=== PATIENT | female | born 2000 | race Caucasian/White ===

== ENCOUNTER 2020-03-21 07:10 | Emergency (ER) | payer OTHER, SELFPAY ==
[2020-03-21 07:43] VITALS: BP 97/45; PULSE 61; RESP 18; TEMP 37.1; O2SAT 99; BMI 27.4
--- NOTE | 2020-03-21 08:06 | XR_ITS ---
EXAMINATION: XR SACRUM AND COCCYX CLINICAL INFORMATION: Status post fall COMPARISON: None TECHNIQUE: 2 views of the sacrum and 2 views of the coccyx were obtained. FINDINGS: There are no fractures. No bone, joint or soft tissue abnormality is demonstrated. XR/XR sacrum coccyx min 2V IMPRESSION: Unremarkable sacrum exam
--- NOTE | 2020-03-21 08:10 | ED_ITS ---
HPI - Back Pain/Injury General Chief Complaint: Back Pain/Injury Stated Complaint: multiple complaints Time Seen by Provider: 03/21/20 08:01 Source: patient Mode of arrival: ambulatory Limitations: no limitations History of Present Illness HPI Narrative: 20 y/o female presenting with tailbone pain after she slipped on ice while getting out her car 2 days ago. She states her foot flipped on ice when she was stepping out and she fell hard onto the lower side of her car and then the cement. She was able to get up and sustained no other injuries. She has been sore since, worse when sitting. She denies numbness, tingling, LE weakness, incontinence. She also reports foul smelling bruner vaginal discharge for the last few days. She is sexually active with a new partner. She does not know if he has any sexually transmitted infections. She denies abdominal pain, vaginal pain or bleeding. Denies chance of . MD elicited complaint: back pain, back injury and fall Pertinent past history: recent trauma Onset (ago): day(s) (2) Timing: constant Severity: moderate Similar Symptoms Previously: No Quality: sharp and aching Location: lumbar spine (lower lumbar and coccyx ) Radiation: none Exacerbating factors: movement and sitting upright Relieving factors: immobilization Context: fall Associated symptoms: denies other symptoms Treatments prior to arrival: cold therapy Work related injury: No Related Data Previous Rx's Medication Instructions Recorded ibuprofen 600 mg PO Q8H PRN #15 tab 03/21/20 lidocaine [Lidoderm] 1 patch TOPICAL DAILY #15 ea 03/21/20 Allergies Allergy/AdvReac Type Severity Reaction Status Date / Time No Known Allergies Allergy Unverified 03/21/20 08:06 Review of Systems Review of Systems: Constitutional: No Fever, N+Chills Cardiovascular: No Chest Pain, No SOB Respiratory: No Cough, No Sputum Gastrointestinal: No Nausea, No Vomiting, No Diarrhea, No abdominal Pain Genitourinary: No Dysuria, No Urinary Frequency, No Hematuria, +vaginal discharge Musculoskeletal: + joint pain, + Myalgias Skin: No Skin Lesions, No rash Neuro: No Weakness, No Numbnes PMFSH Past Medical History Attestation statement: The following information was validated with the patient. Medical History Asthma Social History Social History Advance Directives: No Advance Directives Information Provided: No Physical Exam Vital Signs: Vital Signs: Last Vital Signs Temp 98.8 F 03/21/20 07:43 Pulse 61 03/21/20 07:43 Resp 18 03/21/20 07:43 BP 97/45 L 03/21/20 07:43 Pulse Ox 99 03/21/20 07:43 Body Mass Index 27.4 Appearance: Alert. Oriented X3. No acute distress. HEENT: normal inspection Respiratory: No respiratory distress. Abd: soft, non-tender. normal BX x4 Skin: Skin warm and dry. Normal skin color. Normal skin turgor. No rashes. Back: coccyx tenderness, no soft tissue tenderness of buttocks or sacral area. No deformity or crepitus palpable. No ecchymosis Pelvic: normal external genitalia, moderate amount of white vaginal discharge, normal appearing cervix Extremities: atraumatic, no LE edema Neuro: Oriented X 3. Non-focal Course Course Course Narrative: 20 y/o female presenting with coccyx pain s/p fall and vaginal discharge. XR shows no acute fracture or abnormality of sacrum/coccyx. Pelvic exam with moderate white discharge - swabbed for BV, CT/NG, Trich. UA negative. Will empirically treat for CT/NG, patient agreeable. She was counseled. Stable for d/c. MDM - Back Pain/Injury Lab Data Labs: Lab Results 03/21/20 Range/Units 08:45 Urine Color YELLOW Urine Appearance CLEAR Urine pH 6.0 (5.0-8.0) Ur Specific [place] 1.025 (1.005-1.025) Urine Protein NEG (NEG-TRACE) MG/DL Urine Glucose (UA) NEG (NEG) MG/DL Urine Ketones NEG (NEG) MG/DL Urine Blood NEG (NEG) Urine Nitrite NEG (NEG) Ur Leukocyte Esterase NEG (NEG) Critical Care Time Critical Care Time Critical Care Time: No Discharge Plan Discharge Clinical Impression: Cervicitis Coccyx contusion Qualifiers: Encounter type: initial encounter Qualified Code(s): S30.0XXA - Contusion of lower back and pelvis, initial encounter Patient Disposition: Home, Self-Care Instructions: Cervicitis (ED), Coccyx Injury (ED) Additional Instructions: Your x-ray today was normal. Your urine test did not show any evidence of urinary tract infection. You were tested for and treated for possible Gonorrhea and Chylamadia. If these come back positive we will call you and let you know. Do not have any sexual contact until your symptoms completely resolve. Follow up with your [facility] doctor. Take the prescribed medications as needed for low back pain. If any of your symptoms worsen, or if you develop new concerning symptoms seek medical attention or come back to the ER for further evaluation. Prescriptions: New lidocaine [Lidoderm] 5 % adhesive patch,medicated 1 patch topical DAILY Qty: 15 RF: 0 ibuprofen 600 mg tablet 600 mg PO Q8H PRN (Reason: pain) Qty: 15 RF: 0
[2020-03-21 09:02] LABS: Glucose Urine UA NEG (NEG); Leukocyte Esterase Urine NEG (NEG); Nitrite Urine NEG (NEG); Specific Gravity - Urine 1.025 (1.005-1.025); Urine Blood NEG (NEG); Urine Ketones NEG (NEG); Urine Protein NEG (NEG-TRACE)
[2020-03-21 09:07] LABS: Appearance Urine CLEAR; Color Urine YELLOW
[2020-03-21 09:09] LABS: UPreg QC Valid YES; Urine Pregnancy NEGATIVE (NEGATIVE)
[2020-03-21] MEDS: Azithromycin 500 MG TABLET 1000 MG PO (09:31)
[2020-03-21] MEDS: cefTRIAXone sodium 500 MG, Lidocaine HCl 1 % MPF 1 ML IM (09:32)
[2020-03-21 13:16] LABS: BV Int Neg Control Negative (Negative)
[2020-03-21 13:17] LABS: BV Int Pos Control Positive (Positive)
[2020-03-28 10:45] LABS: CT PCR NOT DETECTED (Not Detect.); NG PCR NOT DETECTED (Not Detect.)
== END 2020-03-21 09:39 | disposition home or self-care (01) ==
PROVIDERS: Physician Assistant; Emergency Provider Emergency Medicine; PCP Internal Medicine
DX: S30.0XXA Contusion of lower back and pelvis, initial encounter (principal); N72 Inflammatory disease of cervix uteri; W00.0XXA Fall on same level due to ice and snow, initial encounter; Y93.9 Activity, unspecified; Y92.9 Unspecified place or not applicable; Y99.9 Unspecified external cause status; Z20.2 Contact with and (suspected) exposure to infections with a predominantly sexual mode of transmission
CPT/HCPCS: 72220; 81003; 81025; 87480; 87491; 87510; 87591; 87660; 96372; 99283; 99284; J0696

== ENCOUNTER 2020-07-24 16:31 | Emergency (ER) | payer OTHER, SELFPAY ==
[2020-07-24 16:32] VITALS: RESP 18; BMI 18.3
--- NOTE | 2020-07-24 16:54 | ED_ITS ---
HPI - URI/Sore Throat General Chief Complaint: Upper Respiratory Symptoms Stated Complaint: covid symptoms Time Seen by Provider: 07/24/20 16:31 Source: patient Mode of arrival: ambulatory Limitations: no limitations History of Present Illness HPI Narrative: 20-year-old female here with cough and sore throat. Here with 3 children who have all the same symptoms. Related Data Previous Rx's Medication Instructions Recorded ibuprofen 600 mg PO Q8H PRN #15 tab 03/21/20 lidocaine [Lidoderm] 1 patch TOPICAL DAILY #15 ea 03/21/20 metronidazole [Flagyl] 500 mg PO Q12H #14 tab 03/21/20 Allergies Allergy/AdvReac Type Severity Reaction Status Date / Time No Known Allergies Allergy Unverified 03/21/20 08:06 Review of Systems Review of Systems: Yes all other systems are reviewed and are negative Constitutional: Constitutional: Reports no additional constitutional complaints, Denies body ache(s), Denies chills, Denies fever(s), Denies headache(s) and Denies weakness Eyes: Eyes: Reports no additional eye complaints and Denies change in vision ENT: Reports system reviewed and no additional complaints, except as documented, Denies dizziness, Denies headache(s), Denies nasal congestion, Denies nasal discharge, Denies neck pain and Reports sore throat Cardiovascular: Cardiovascular: Reports no additional cardiovascular complaints, Denies chest pain, Denies leg edema and Denies dyspnea Respiratory: Respiratory: Reports no additional respiratory complaints, Reports cough and Denies dyspnea Gastrointestinal: Gastrointestinal: Reports no additional gastrointestinal complaints, Denies abdominal pain, Denies diarrhea, Denies nausea and Denies vomiting Genitourinary: Genitourinary: Reports no additional female genitourinary complaints and Denies urinary incontinence Musculoskeletal: Musculoskeletal: Reports no additional musculoskeletal complaints, Denies back pain, Denies arthralgias, Denies joint swelling, Denies neck pain, Denies numbness and Denies tingling Integumentary/Breasts: Skin/Breast: Reports system reviewed and no additional complaints, except as docu and Denies rash Neurologic: Denies Abnormal speech present, Denies dizziness, Denies headache(s), Denies numbness, Denies tingling and Denies weakness [facility] Past Medical History Attestation statement: The following information was validated with the patient. Source: old records reviewed and nursing notes reviewed Medical History Asthma Social History Social History Advance Directives: No Advance Directives Information Provided: Yes Patient : No Physical Exam Vital Signs: Vital Signs: Last Vital Signs Resp 18 07/24/20 16:32 Body Mass Index 18.3 Const: General: cooperative, healthy appearing, comfortable and no acute distress Orientation/consciousness: patient oriented x3 Limitations: no limitations HENMT: Head: Yes normal to inspection Ears: hearing grossly normal bilaterally General nose exam: Normal external nose present Face and sinus: Yes normal facial exam Mouth: Normal oral and palatal mucosa present Throat: Yes posterior oropharynx normal Eyes: General: appearance normal, both eyes and all related structures Pupils: Equal, round and reactive pupils present Neck: Neck: Yes normal visual inspection Chest: Chest palpation & inspection: normal inspection of the chest Resp: Effort & Inspection: normal respiratory effort Auscultation: clear to auscultation bilaterally Cardio: Rate: regular rate Rhythm: regular rhythm Peripheral pulses: Peripheral pulses 2+ throughout GI: Inspection: Yes normal to inspection Palpation (GI): Soft to palpation and nontender Auscultation: normal bowel sounds Back/Spine/Pelvis: Thoracic/Lumbar Spine: thoracic and lumbar spine normal to inspection Skin: General skin exam: no rashes or lesions noted Neuro: General: patient oriented x3, no focal motor deficits and normal sensation to monofilament Cranial nerves: Yes Equal, round and reactive pupils present Cognition (Neuro): normal cognition Speech: No Abnormal speech present Gait exam (Neuro): Normal gait present Motor exam (neuro): 5/5 motor strength present throughout Extrem: General: Yes normal to inspection Course Course Course Narrative: URI symptoms with sick contact at home. Requesting COVID screen. This was sent and it was negative. Patient is hemodynamically stable. Well appearing. Likely viral. Reviewed worrisome signs and symptoms of when to return to the emergency department. Comfortable discharge home. MDM - URI/Sore Throat Medical Records Attestation: I reviewed the patient's medical records. Lab Data Attestation: I reviewed the patient's lab results. Labs: Lab Results 07/24/20 Range/Units 16:44 COVID-19 (ALE) Negative (Negative) COVID-19 Clin Com See Note Discharge Plan Discharge Clinical Impression: Viral infection Patient Disposition: Home, Self-Care Instructions: Viral Syndrome (ED) Additional Instructions: Increase fluids, rest Motrin or Tylenol for pain or fever Prescriptions: No Action lidocaine [Lidoderm] 5 % adhesive patch,medicated 1 patch topical DAILY Qty: 15 RF: 0 ibuprofen 600 mg tablet 600 mg PO Q8H PRN (Reason: pain) Qty: 15 RF: 0 metronidazole [Flagyl] 500 mg tablet 500 mg PO Q12H Qty: 14 RF: 0 Referrals: Physician,Unknown [Primary Care Provider] - 2 days Interventions: ED Discharge Assessment Last Done: 07/24/20 17:24 Discharge Date/Time: 07/24/20 17:25
[2020-07-24 17:09] LABS: COVID-19 Test Negative (Negative); IDNOW Serial# 9DD0AD1C
== END 2020-07-24 17:25 | disposition home or self-care (01) ==
PROVIDERS: Nurse Practitioner Family; Emergency Provider Emergency Medicine
DX: B34.9 Viral infection, unspecified (principal); Z20.822 Contact with and (suspected) exposure to COVID-19; J02.9 Acute pharyngitis, unspecified; J45.909 Unspecified asthma, uncomplicated
CPT/HCPCS: 36415; 87635; 99282; 99283

== ENCOUNTER 2021-03-23 00:49 | Emergency (ER) | payer OTHER, SELFPAY ==
[2021-03-23 00:57] VITALS: BP 119/48; PULSE 104; RESP 24; TEMP 37.1; O2SAT 100; BMI 27.4
[2021-03-23 01:30] LABS: COVID-19 Test Positive (Negative); IDNOW Serial# 9DD0AD1C
== END 2021-03-23 05:21 | disposition left against medical advice (07) ==
PROVIDERS: Emergency Provider Emergency Medicine
DX: J02.9 Acute pharyngitis, unspecified (principal); R51.9 Headache, unspecified; Z20.822 Contact with and (suspected) exposure to COVID-19
CPT/HCPCS: 87635; 99281; 99283

== ENCOUNTER 2021-07-09 07:13 | Inpatient (IN) | payer OTHER, SELFPAY ==
--- NOTE | ~2021-07-09 | XR_ITS ---
EXAMINATION: XR CHEST CLINICAL INFORMATION: Chest pain COMPARISON: None TECHNIQUE: Frontal view of the chest was obtained. FINDINGS: No significant abnormality is noted involving the heart, lungs, mediastinum, bony thorax or soft tissues. XR/XR chest 1V IMPRESSION: Unremarkable examination.
--- NOTE | ~2021-07-09 | FL_ITS ---
PROCEDURE: Lumbar puncture Referring provider: Teddy Roblero Procedural Personnel Attending physician(s): Silvio Crews MD Resident physician(s): None Advanced practice provider(s): None Pre-procedure diagnosis: Weakness, areflexia, influenza, Guillain [place] syndrome Post-procedure diagnosis: Same Indication: Fluid analysis Additional clinical history: None Complications: No immediate complications. FL/FL guided lumbar puncture LP IMPRESSION: Image guided lumbar puncture at L3-L4. 12 ml clear CSF was collected. Opening pressure was 12 cmH20, Plan: Patient to remain supine for one hour following the procedure. Patient will be transferred to the floor. PROCEDURE SUMMARY: - Image guided lumbar puncture with pressure measurements - Additional procedure(s): None PROCEDURE DETAILS: Pre-procedure Consent: Informed consent for the procedure including risks, benefits and alternatives was obtained and time-out was performed prior to the procedure. Preparation: The site was prepared and draped using maximal sterile barrier technique including cutaneous antisepsis. Anesthesia/sedation Level of anesthesia/sedation: None Anesthesia/sedation administered by: Not applicable Total intra-service sedation time (minutes): 0 Intervention Initial imaging was performed to select an appropriate access level. Patient was placed prone. Local anesthesia was administered. Using a sublaminar approach a 20-gauge spinal needle was advanced into the thecal space under intermittent fluoroscopic guidance. Fluid return confirmed position. Opening pressure was obtained. CSF was then collected in four vials for requested laboratory studies. Closing pressure was then obtained. The needle was removed and a sterile dressing applied. Opening pressure (cmH20): 12 Volume CSF removed (ml): 12 Contrast Contrast agent: None Contrast volume (mL): 0 Radiation Dose Fluoroscopy time (minutes): 0.2 Reference air kerma (mGy): 3.14 Kerma area product (Gy-cm2): 0.107 Additional Details Additional description of procedure: None Equipment details: None Specimens removed: Cerebrospinal fluid Estimated blood loss (mL): Less than 10 Attestation Signer name: Silvio Crews I attest that I was present for the entire procedure. I reviewed the stored images and agree with the report as written.
--- NOTE | ~2021-07-09 | MR_ITS ---
EXAMINATION: MR BRAIN WITHOUT AND WITH CONTRAST CLINICAL INFORMATION: Weakness. Areflexia. History of influenza. Guillain-[place] syndrome. COMPARISON: None available. TECHNIQUE: MRI of the brain was obtained using routine sequences without and following the administration of 5 mL of Gadavist intravenous contrast. FINDINGS: No focal restricted diffusion is demonstrated to suggest acute or subacute cerebral ischemia. No evidence of acute or chronic hemorrhagic products on heme-sensitive imaging. Minimal nonspecific scattered periventricular and deep white matter T2 FLAIR hyperintensities consistent. The ventricles are normal in morphology and size. No abnormal mass effect. No midline shift. Normal appearance of the pituitary gland. The cerebellar tonsils are positioned at the level the foramen magnum. Normal arterial and venous vascular flow voids are present. No abnormal contrast enhancement. Normal, homogeneous marrow signal. Mild mucosal thickening of the paranasal sinuses. No signal abnormalities within the mastoids. MR/MR head/brain wo/w con IMPRESSION: 1. No acute intracranial abnormalities. No abnormal intracranial enhancement. 2. Minimal nonspecific white matter changes.
--- NOTE | ~2021-07-09 | MR_ITS ---
EXAMINATION: MR LUMBAR SPINE WITHOUT AND WITH CONTRAST CLINICAL INFORMATION: Myelopathy. COMPARISON: None available. TECHNIQUE: MRI of the lumbar spine was obtained using routine sequences without and following the administration of 5.5 mL of Gadavist intravenous contrast. FINDINGS: Normal anatomic alignment. Normal, homogeneous marrow signal throughout. The vertebral body heights are maintained. The intervertebral discs are of normal height and signal. The conus medullaris terminates at the level of L1-L2. The distal spinal cord is normal in appearance. No abnormal contrast enhancement. No significant abnormalities of the paraspinal musculature. Limited evaluation of the intra-abdominal structures without significant abnormalities. The abdominal aorta is of normal contour and caliber. AXIAL SPINAL LEVELS: Normal annular contours. There is no facet joint arthropathy. There is no neural foraminal or spinal canal stenosis. MR/MR lumbar spine wo/w con IMPRESSION: Normal MRI of the lumbar spine. No abnormal enhancement. No evidence of spinal canal stenosis or nerve root compression.
--- NOTE | ~2021-07-09 | US_ITS ---
EXAMINATION: US VENOUS ULTRASOUND WITH DOPPLER LOWER EXTREMITY, RIGHT CLINICAL INFORMATION: Right leg pain COMPARISON: None TECHNIQUE: Ultrasound of the deep veins is performed from the hip to the calf with compression sonography and color and pulse Doppler assessment. Spectral analysis with color-flow imaging is performed. FINDINGS: There is normal venous compression and respiratory variation and augmented flow. The visualized common femoral vein, superficial femoral vein, profunda femoral vein, popliteal vein, and the trifurcation region shows no evidence of deep venous thrombosis. There is no significant popliteal fossa cyst. If the patient's symptoms persist, followup ultrasound in 5 days 7 days might be of value to exclude proximal propagation from a non-visualized calf vein. US/US venous duplex LE RT IMPRESSION: No DVT demonstrated in the right lower extremity.
[2021-07-09 07:18] VITALS: BP 148/81; PULSE 100; RESP 20; TEMP 37.5; O2SAT 100; BMI 22.6
--- NOTE | 2021-07-09 07:37 | ECG_ITS ---
Test Reason : CP Blood Pressure : / mmHG Vent. Rate : 091 BPM Atrial Rate : 091 BPM P-R Int : 188 ms QRS Dur : 072 ms QT Int : 360 ms P-R-T Axes : 072 039 035 degrees QTc Int : 442 ms Normal sinus rhythm with sinus arrhythmia Normal ECG No previous ECGs available Referred By: Ghanshyam Perez Electronically Signed By:GIAN BARRIOS MD
--- NOTE | 2021-07-09 07:37 | ED_ITS ---
HPI - General Adult General Chief complaint: Back Pain/Injury Stated complaint: BODYACHES,NAUSEA,FEVER SINCE T-1 Time Seen by Provider: 07/09/21 07:18 Source: patient and EMS Mode of arrival: EMS History of Present Illness HPI narrative: this is a 21 years old the female presented with multiple somatic complain she states she states that she has right leg pain localized in the right thigh, intermittent upper abdominal pain, intermittent chest pain since last night. He denies any medical problems. She denies any vomiting diarrhea. The right leg pain again is localized in the right inner thigh she does not report any injury Onset (ago): day(s) (1) Location: chest, abdomen and lower extremity (rt) Radiation: extremity and abdomen Severity: moderate Quality: burning Pain Consistency: intermittent Relieving factors: none Exacerbating factors: none Associated symptoms: denies other symptoms Treatments prior to arrival: none Related Data Home Medications Medication Instructions Recorded Confirmed albuterol sulfate 90 mcg/actuation 2 inh INHALATION Q4-6H PRN 07/09/21 07/09/21 breath activated powder inhaler Allergies Allergy/AdvReac Type Severity Reaction Status Date / Time No Known Allergies Allergy Unverified 03/21/20 08:06 Review of Systems Constitutional: Constitutional: Reports no additional constitutional complaints Cardiovascular: Cardiovascular: Denies dyspnea and Denies dyspnea on exertion Respiratory: Respiratory: Denies cough, Denies dyspnea, Denies dyspnea on exertion and Denies wheezing Gastrointestinal: Gastrointestinal: Denies diarrhea, Denies loose stools and Denies vomiting Genitourinary: Genitourinary: Denies abnormal vaginal bleeding Allergic/Immunologic: Allergic/Immunologic: Denies wheezing PMFSH Past Medical History PMFSH Narrative: denies any past medical history. She states that she only had bacterial vaginosis in the past Medical History Asthma Family History Family History Father Diabetes Social History Social History (Updated 07/09/21 @ 12:38 by SWEETIE Darden) Alcohol intake: current Alcohol intake frequency: a few times a week Patient Tobacco Use Status: Never used Tobacco Use of substances other than those prescribed or required for medical reasons: Yes Substance Use Type: Marijuana Advance Directives: No Advance Directives Information Provided: No Physical Exam ED Vital Signs: Vital Signs - 24 hr 07/09/21 07:18 07/09/21 08:00 Temperature 99.5 F Pulse Rate 100 92 Respiratory Rate 20 Blood Pressure 148/81 H 126/67 Pulse Oximetry 100 100 BMI result Body Mass Index 22.6 Const General: cooperative, alert and anxious Nutritional Appearance: average body habitus Orientation/consciousness: patient oriented x3 Limitations: no limitations HENMT Head: Yes normal to inspection Ears: hearing grossly normal bilaterally General nose exam: Normal external nose present Face and sinus: Yes normal facial exam Mouth: Normal oral and palatal mucosa present Throat: Yes posterior oropharynx normal Neck Neck: Yes normal visual inspection, Yes full ROM and Yes no lymphadenopathy Chest Chest palpation & inspection: normal inspection of the chest Resp Effort & Inspection: normal respiratory effort Auscultation: clear to auscultation bilaterally Cardio Jugular venous distension: no JVD Palpation: normal PMI Rate: regular rate Rhythm: regular rhythm GI Inspection: Yes normal to inspection Palpation (GI): Soft to palpation, not firm, nontender and no guarding Skin General skin exam: no rashes or lesions noted, elasticity normal and turgor normal Lesions: no lesions Rashes: no rashes Neuro General: patient oriented x3 Cranial nerves: Yes CN's II-XII intact bilaterally Cognition (Neuro): normal cognition Course Reevaluation(s) Reevaluation #1: feeling much better at thi time CPK noted will hydrate 2 Liter and recheck cpk trend Time: 08:57 Reevaluation #2: CPK repeated today he is more elevated at this point will admit the patient for observation for IV fluids and trending CPK I spoke with the case with the hospitalist Dr Gregorio who accept the pt Medical Decision Making MDM Narrative Medical decision making narrative: patient presenting multiple complaining chest pain abdominal pain right leg pain were going to get blood work I will ultrasound the right lower extremity as well administer analgesics and re-examin Lab Data Result diagrams: 07/09/21 07:56 07/09/21 07:56 Labs: Lab Results 07/09/21 07/09/21 07/09/21 Range/Units 07:56 07:56 07:56 WBC 5.3 (4.8-10.8) X10*3/uL RBC 4.82 (4.20-5.50) X10*6/uL Hgb 14.8 (12.0-16.0) g/dl Hct 44.0 (37.0-47.0) % MCV 91.3 (80.0-98.0) fL MCH 30.7 (27.0-33.0) pg MCHC 33.6 (31.0-35.0) g/dl RDW 12.8 (11.0-16.0) % Plt Count 264 (160-400) X10*3/uL MPV 9.0 L (9.4-12.3) fL Immature Gran % (Auto) 0.4 (0.0-0.4) % Neut % (Auto) 76.1 H (45-73) % Lymph % (Auto) 12.6 L (20-40) % Cass % (Auto) 7.7 (2-11) % Eos % (Auto) 2.8 (0-4) % Baso % (Auto) 0.4 (0-2) % Lymph # (Auto) 0.7 L (1.2-4.9) X10*3/uL Cass # (Auto) 0.4 (0.1-1.2) X10*3/uL Eos # (Auto) 0.2 (0.0-0.4) X10*3/uL Baso # (Auto) 0.0 (0.0-0.2) X10*3/uL Abs Immat Gran (auto) 0.02 (0.00-0.03) X10*3/uL Absolute Neuts (auto) 4.0 (2.0-8.3) x10*3/uL Absolute Nucleated RBC 0.000 (0.0-0.012) X10*3/uL Nucleated RBC % (auto) 0.0 (0.0-0.2) /100WBC Sodium 135 (135-145) mmol/L Potassium 4.6 (3.3-5.1) mmol/L Chloride 105 (96-108) mmol/L Carbon Dioxide 21 L (22-29) mmol/L Anion Gap 14 (12-20) BUN 11 (9-16) mg/dL Creatinine 0.91 (0.5-1.4) mg/dL Estim Creat Clear Calc 89.9 Estimated GFR > 60 Random Glucose 99 (60-115) mg/dL Calcium 10.0 (8.4-10.2) mg/dL Total Bilirubin 0.7 (0.0-1.0) mg/dL AST 55 H (5-31) U/L ALT 21 (0-31) U/L Alkaline Phosphatase 55 (39-117) U/L Total Creatine Kinase 3828 H (26-140) U/L Troponin I High Sens (<3.5-17.0) ng/L Total Protein 8.3 H (6.5-8.0) g/dL Albumin 4.5 (3.5-5.0) g/dL Lipase 7 L (8-78) U/L Beta HCG, Quant < 2 mIU/mL Urine Color Urine Appearance Urine pH (5.0-8.0) Ur Specific [place] (1.005-1.025) Urine Protein (NEG-TRACE) MG/DL Urine Glucose (UA) (NEG) MG/DL Urine Ketones (NEG) MG/DL Urine Blood (NEG) Urine Nitrite (NEG) Ur Leukocyte Esterase (NEG) Urine RBC (0) /HPF Urine WBC (0-4) /HPF Ur Squamous Epith Cells /LPF Urine Bacteria /LPF Urine Opiates Screen (Not Detect) Urine Fentanyl Screen (Not Detect) Ur Barbiturates Screen (Not Detect) Ur Phencyclidine Scrn (Not Detect) Ur Amphetamines Screen (Not Detect) U Benzodiazepines Scrn (Not Detect) Urine Cocaine Screen (Not Detect) U Marijuana (THC) Screen (Not Detect) COVID-19 (ALE) (Negative) COVID-19 Clin Com 07/09/21 07/09/21 07/09/21 Range/Units 07:56 08:45 08:45 WBC (4.8-10.8) X10*3/uL RBC (4.20-5.50) X10*6/uL Hgb (12.0-16.0) g/dl Hct (37.0-47.0) % MCV (80.0-98.0) fL MCH (27.0-33.0) pg MCHC (31.0-35.0) g/dl RDW (11.0-16.0) % Plt Count (160-400) X10*3/uL MPV (9.4-12.3) fL Immature Gran % (Auto) (0.0-0.4) % Neut % (Auto) (45-73) % Lymph % (Auto) (20-40) % Cass % (Auto) (2-11) % Eos % (Auto) (0-4) % Baso % (Auto) (0-2) % Lymph # (Auto) (1.2-4.9) X10*3/uL Cass # (Auto) (0.1-1.2) X10*3/uL Eos # (Auto) (0.0-0.4) X10*3/uL Baso # (Auto) (0.0-0.2) X10*3/uL Abs Immat Gran (auto) (0.00-0.03) X10*3/uL Absolute Neuts (auto) (2.0-8.3) x10*3/uL Absolute Nucleated RBC (0.0-0.012) X10*3/uL Nucleated RBC % (auto) (0.0-0.2) /100WBC Sodium (135-145) mmol/L Potassium (3.3-5.1) mmol/L Chloride (96-108) mmol/L Carbon Dioxide (22-29) mmol/L Anion Gap (12-20) BUN (9-16) mg/dL Creatinine (0.5-1.4) mg/dL Estim Creat Clear Calc Estimated GFR Random Glucose (60-115) mg/dL Calcium (8.4-10.2) mg/dL Total Bilirubin (0.0-1.0) mg/dL AST (5-31) U/L ALT (0-31) U/L Alkaline Phosphatase (39-117) U/L Total Creatine Kinase (26-140) U/L Troponin I High Sens < 3.5 (<3.5-17.0) ng/L Total Protein (6.5-8.0) g/dL Albumin (3.5-5.0) g/dL Lipase (8-78) U/L Beta HCG, Quant mIU/mL Urine Color YELLOW Urine Appearance CLEAR Urine pH 7.0 (5.0-8.0) Ur Specific [place] 1.015 (1.005-1.025) Urine Protein NEG (NEG-TRACE) MG/DL Urine Glucose (UA) NEG (NEG) MG/DL Urine Ketones 15 (NEG) MG/DL Urine Blood NEG (NEG) Urine Nitrite NEG (NEG) Ur Leukocyte Esterase NEG (NEG) Urine RBC 0 (0) /HPF Urine WBC 0 (0-4) /HPF Ur Squamous Epith Cells TRACE /LPF Urine Bacteria NONE /LPF Urine Opiates Screen Not Detected (Not Detect) Urine Fentanyl Screen Not Detected (Not Detect) Ur Barbiturates Screen Not Detected (Not Detect) Ur Phencyclidine Scrn Not Detected (Not Detect) Ur Amphetamines Screen Not Detected (Not Detect) U Benzodiazepines Scrn Not Detected (Not Detect) Urine Cocaine Screen Not Detected (Not Detect) U Marijuana (THC) Screen POSITIVE H (Not Detect) COVID-19 (ALE) (Negative) COVID-19 Clin Com 07/09/21 07/09/21 Range/Units 10:21 11:37 WBC (4.8-10.8) X10*3/uL RBC (4.20-5.50) X10*6/uL Hgb (12.0-16.0) g/dl Hct (37.0-47.0) % MCV (80.0-98.0) fL MCH (27.0-33.0) pg MCHC (31.0-35.0) g/dl RDW (11.0-16.0) % Plt Count (160-400) X10*3/uL MPV (9.4-12.3) fL Immature Gran % (Auto) (0.0-0.4) % Neut % (Auto) (45-73) % Lymph % (Auto) (20-40) % Cass % (Auto) (2-11) % Eos % (Auto) (0-4) % Baso % (Auto) (0-2) % Lymph # (Auto) (1.2-4.9) X10*3/uL Cass # (Auto) (0.1-1.2) X10*3/uL Eos # (Auto) (0.0-0.4) X10*3/uL Baso # (Auto) (0.0-0.2) X10*3/uL Abs Immat Gran (auto) (0.00-0.03) X10*3/uL Absolute Neuts (auto) (2.0-8.3) x10*3/uL Absolute Nucleated RBC (0.0-0.012) X10*3/uL Nucleated RBC % (auto) (0.0-0.2) /100WBC Sodium (135-145) mmol/L Potassium (3.3-5.1) mmol/L Chloride (96-108) mmol/L Carbon Dioxide (22-29) mmol/L Anion Gap (12-20) BUN (9-16) mg/dL Creatinine (0.5-1.4) mg/dL Estim Creat Clear Calc Estimated GFR Random Glucose (60-115) mg/dL Calcium (8.4-10.2) mg/dL Total Bilirubin (0.0-1.0) mg/dL AST (5-31) U/L ALT (0-31) U/L Alkaline Phosphatase (39-117) U/L Total Creatine Kinase 4777 H (26-140) U/L Troponin I High Sens (<3.5-17.0) ng/L Total Protein (6.5-8.0) g/dL Albumin (3.5-5.0) g/dL Lipase (8-78) U/L Beta HCG, Quant mIU/mL Urine Color Urine Appearance Urine pH (5.0-8.0) Ur Specific [place] (1.005-1.025) Urine Protein (NEG-TRACE) MG/DL Urine Glucose (UA) (NEG) MG/DL Urine Ketones (NEG) MG/DL Urine Blood (NEG) Urine Nitrite (NEG) Ur Leukocyte Esterase (NEG) Urine RBC (0) /HPF Urine WBC (0-4) /HPF Ur Squamous Epith Cells /LPF Urine Bacteria /LPF Urine Opiates Screen (Not Detect) Urine Fentanyl Screen (Not Detect) Ur Barbiturates Screen (Not Detect) Ur Phencyclidine Scrn (Not Detect) Ur Amphetamines Screen (Not Detect) U Benzodiazepines Scrn (Not Detect) Urine Cocaine Screen (Not Detect) U Marijuana (THC) Screen (Not Detect) COVID-19 (ALE) Negative (Negative) COVID-19 Clin Com See Note Imaging Data us rt leg: Radiologist's impression: mpression and respiratory variation and augmented flow. The visualized common femoral vein, superficial femoral vein, profunda femoral vein, popliteal vein, and the trifurcation region shows no evidence of deep venous thrombosis. ? There is no significant popliteal fossa cyst. If the patient's symptoms persist, followup ultrasound in 5 days 7 days might be of value to exclude proximal propagation from a non-visualized calf vein. US/US venous duplex LE RT IMPRESSION: No DVT demonstrated in the right lower extremity. Dictated By: Azar Iraheta MD Signed By: <Electronically signed by Azar Iraheta MD in OV> 07/09/2143 DD/ TD/TT:? [employer] Operator: NATALIIA Discharge Plan Discharge Clinical Impression: Rhabdomyolysis, Leg pain, right Patient Disposition: Admitted As Inpatient Interventions: Admission Worksheet (ED) Last Done: 07/09/21 14:19 Discharge Date/Time: 07/09/21 14:30
[2021-07-09 08:00] VITALS: BP 126/67; PULSE 92; O2SAT 100
[2021-07-09 08:00] LABS: MANUAL DIFF FLAG NO
--- NOTE | 2021-07-09 08:00 | PC.NURSE ---
pt reports 10/10 shooting mid-sternal pain that radiates up and down her R leg. she also reports the same pain in her ADRIANO. she states the pain started last night and it kept her up all night. she reports n/v and feeling hot and cold as well as increased sweating. no diarrhea. she denies being around anyone sick. pt denies any fall/injury. iv placed, labs drawn, meds given as documented.
[2021-07-09 08:01] LABS: Basophils Percent Auto 0.4 % (0-2); Eosinophils Absolute Auto 0.2 X10*3/uL (0.0-0.4); Eosinophils Percent Auto 2.8 % (0-4); Hemoglobin 14.8 g/dl (12.0-16.0); Imm Gran Abs Auto 0.02 X10*3/uL (0.00-0.03); Imm Gran Pct Auto 0.4 % (0.0-0.4); Lymphocytes Absolute Auto 0.7 X10*3/uL (1.2-4.9); Lymphocytes Percent Auto 12.6 % (20-40); Mean Corpuscular HGB Conc 33.6 g/dl (31.0-35.0); Mean Corpuscular Hemoglobin 30.7 pg (27.0-33.0); Mean Corpuscular Volume 91.3 fL (80.0-98.0); Monocytes Absolute Auto 0.4 X10*3/uL (0.1-1.2); Monocytes Percent Auto 7.7 % (2-11); Neutrophils Percent Auto 76.1 % (45-73); Platelet Count 264 X10*3/uL (160-400); Red Blood Count 4.82 X10*6/uL (4.20-5.50); Red Cell Distribution Width 12.8 % (11.0-16.0); White Blood Count 5.3 X10*3/uL (4.8-10.8)
[2021-07-09] MEDS: Ketorolac Tromethamine 15 MG/ML VIAL IV (08:02)
[2021-07-09] MEDS: 0.9 % Sodium Chloride 1,000 ML 999 ML IVCONT ×2 (08:04→08:58)
[2021-07-09] MEDS: Acetaminophen 325 MG TABLET 650 MG PO ×3 (08:20→22:21)
[2021-07-09] MEDS: HYDROmorphone HCl 0.5 MG/0.5 ML SYRINGE IVPUSH (08:28)
[2021-07-09 08:33] LABS: Troponin-I High Sensitivity < 3.5 ng/L (<3.5-17.0)
[2021-07-09 08:39] LABS: Alanine Aminotransferase 21 U/L (0-31); Albumin Level 4.5 g/dL (3.5-5.0); Alkaline Phosphatase 55 U/L (39-117); Anion Gap 14 (12-20); Aspartate Amino Transferase 55 U/L (5-31); Bilirubin Total 0.7 mg/dL (0.0-1.0); Blood Urea Nitrogen 11 mg/dL (9-16); Carbon Dioxide 21 mmol/L (22-29); Chloride 105 mmol/L (96-108); Creatinine Clr Calc Pharmacy 89.9; Estimated Glomerular Filt Rate > 60; Glucose Random 99 mg/dL (60-115); HCG Quantitative < 2 mIU/mL; Lipase 7 U/L (8-78); Potassium 4.6 mmol/L (3.3-5.1); Sodium 135 mmol/L (135-145); Total Protein 8.3 g/dL (6.5-8.0)
[2021-07-09 08:58] LABS: Appearance Urine CLEAR; Color Urine YELLOW; Glucose Urine UA NEG (NEG); Leukocyte Esterase Urine NEG (NEG); Nitrite Urine NEG (NEG); Specific Gravity - Urine 1.015 (1.005-1.025); Urine Blood NEG (NEG); Urine Ketones 15 MG/DL (NEG); Urine Protein NEG (NEG-TRACE)
[2021-07-09 09:16] LABS: Amphetamine Screen Urine Not Detected (Not Detect); Barbiturates, Urine Not Detected (Not Detect); Benzodiazepines Screen Urine Not Detected (Not Detect); Cannabinoid Screen Urine POSITIVE (Not Detect); Cocaine Screen Urine Not Detected (Not Detect); Fentanyl, urine Not Detected (Not Detect); Opiate Screen Urine Not Detected (Not Detect); Phencyclidine Screen Urine Not Detected (Not Detect)
[2021-07-09 09:20] LABS: RBC Urine 0 /HPF (0); Squamous Epithelial Cell Urine TRACE /LPF; WBC Urine 0 /HPF (0-4)
--- NOTE | 2021-07-09 10:23 | PC.NURSE ---
repeat cpk drawn and sent, pt sleeping on first contact, but when awoken, pt begins writhing in pain. able to reposition self on own in stretcher, given pillow for comfort. wctm. provider aware.
[2021-07-09 12:13] LABS: COVID-19 Test Negative (Negative); IDNOW Serial# 16C4AD1C
--- NOTE | 2021-07-09 12:14 | P.HPHOSP_ITS ---
History of Present Illness Date of Service: 07/09/21 Attending physician on admission: Yusuf Gregorio Chief Complaint: Myalgias This is a 21 year old female with no significant past medical history who presents to the ED with multiple complaints. she reports bilateral inner thigh pain and rib pain starting yesterday. rib pain seems to be worse with breathing and movement of any kid as well as palpation. yesterday she also had an episode of shortness of breath which resolved on its own. overnight she had sweats. she also describes pins and needles feeling in bilateral feet. she was prescribed 7 day course of flagyl earlier in the month for BV but has been taking it sporadically because she frequently forgets. Her appetite has been at her baseline, she has been drinking gatorade. she denies any abdominal pain, nausea, vomiting, diarrhea. Her son had a flare-up of his asthma last week otherwise she denies any recent sick contacts. In the ED, her work up was significant for CPK of 3828, she received IVF and CPK increased to 4777. CXR and DVT study were both unremarkable. Due to elevated CPK the decision was made to admit her for further management. She uses marijuana but denies use of any other drugs. Tox screen was positive only for marijuana. She denies any recent surgery, trauma, injury of any kind. She denies any excessive physical activity. She has not taken any over the counter medications or supplements. She denies any previous history of rhabdo. COVID 19 vaccination status: Pfizer x2 Review of Systems Constitutional: Constitutional: Reports body ache(s), Reports malaise and Reports night sweats Cardiovascular: Cardiovascular: Denies chest pain, Denies palpitations and Denies dyspnea Respiratory: Respiratory: Denies cough and Denies dyspnea Gastrointestinal: Gastrointestinal: Denies abdominal pain, Denies diarrhea, Denies nausea and Denies vomiting Musculoskeletal: Musculoskeletal: Reports myalgias Endocrine: Endocrine: Denies palpitations [facility] Medical History Asthma Functional capacity: independent ambulation Family History Father Diabetes Social History (Updated 07/09/21 @ 12:38 by SWEETIE Darden) Alcohol intake: current Alcohol intake frequency: a few times a week Patient Tobacco Use Status: Never used Tobacco Use of substances other than those prescribed or required for medical reasons: Yes Substance Use Type: Marijuana Advance Directives: No Advance Directives Information Provided: No Meds Allergies Allergy/AdvReac Type Severity Reaction Status Date / Time No Known Allergies Allergy Unverified 03/21/20 08:06 Active Medications: Current Medications Pharmacy Consult (Consult Rx Perform Med Rec) 1 each MISCELLANE ONCE PRN PRN Reason: Consult order Home Medications Medication Instructions Recorded Confirmed Last Taken Type albuterol sulfate 90 mcg/actuation 2 inh INHALATION Q4-6H PRN 07/09/21 07/09/21 Unknown History breath activated powder inhaler Physical Exam Vital Signs and Narrative: Vital Signs: Last Vital Signs Temp 99.5 F 07/09/21 07:18 Pulse 92 07/09/21 08:00 Resp 20 07/09/21 07:18 BP 126/67 07/09/21 08:00 Pulse Ox 100 07/09/21 08:00 BMI result Body Mass Index 22.6 Const: Other: mood labile, intermittent tears, complaining of pain; dramatic response to palpating ribs and movement in general General: alert and awake Nutritional Appearance: average body habitus Orientation/consciousness: patient oriented x3 Eyes: Pupils: Equal, round and reactive pupils present EOM: EOMs intact bilaterally Chest: Other: tenderness to palpation b/l anterior rib cage Resp: Effort & Inspection: normal respiratory effort and able to speak in complete sentences Cardio: Rate: regular rate Heart sounds: S1 normal heart sound present and S2 normal heart sound present GI: Inspection: No distended Palpation (GI): Soft to palpation and nontender Neuro: Other: was able to ambulate independently with slow steady gait but reported discomfort in legs General: patient oriented x3 and CN's II-XI intact bilaterally Cranial nerves: Yes Equal, round and reactive pupils present Extrem: Other: extremities warm; able to move all 4 extremities spontaneously; reports pain in bilateral inner thighs with palpation and ambulation Psych: Affect: Labile affect present Results Labs CBC and Chem 7: 07/09/21 07:56 07/09/21 07:56 Labs: Laboratory Results - last 24 hr 07/09/21 07/09/21 07/09/21 07:56 07:56 07:56 MCV 91.3 MCH 30.7 MCHC 33.6 RDW 12.8 Plt Count 264 MPV 9.0 L Immature Gran % (Auto) 0.4 Neut % (Auto) 76.1 H Lymph % (Auto) 12.6 L [place] % (Auto) 7.7 Eos % (Auto) 2.8 Baso % (Auto) 0.4 Lymph # (Auto) 0.7 L [place] # (Auto) 0.4 Eos # (Auto) 0.2 Baso # (Auto) 0.0 Abs Immat Gran (auto) 0.02 Absolute Neuts (auto) 4.0 Absolute Nucleated RBC 0.000 Nucleated RBC % (auto) 0.0 Anion Gap 14 Estim Creat Clear Calc 89.9 Estimated GFR > 60 Random Glucose 99 Calcium 10.0 Total Bilirubin 0.7 AST 55 H ALT 21 Alkaline Phosphatase 55 Total Creatine Kinase 3828 H Troponin I High Sens Total Protein 8.3 H Albumin 4.5 Lipase 7 L Beta HCG, Quant < 2 Urine Color Urine Appearance Urine pH Ur Specific [place] Urine Protein Urine Glucose (UA) Urine Ketones Urine Blood Urine Nitrite Ur Leukocyte Esterase Urine RBC Urine WBC Ur Squamous Epith Cells Urine Bacteria Urine Opiates Screen Urine Fentanyl Screen Ur Barbiturates Screen Ur Phencyclidine Scrn Ur Amphetamines Screen U Benzodiazepines Scrn Urine Cocaine Screen U Marijuana (THC) Screen COVID-19 (ALE) COVID-19 Clin Com 07/09/21 07/09/21 07/09/21 07:56 08:45 08:45 MCV MCH MCHC RDW Plt Count MPV Immature Gran % (Auto) Neut % (Auto) Lymph % (Auto) [place] % (Auto) Eos % (Auto) Baso % (Auto) Lymph # (Auto) [place] # (Auto) Eos # (Auto) Baso # (Auto) Abs Immat Gran (auto) Absolute Neuts (auto) Absolute Nucleated RBC Nucleated RBC % (auto) Anion Gap Estim Creat Clear Calc Estimated GFR Random Glucose Calcium Total Bilirubin AST ALT Alkaline Phosphatase Total Creatine Kinase Troponin I High Sens < 3.5 Total Protein Albumin Lipase Beta HCG, Quant Urine Color YELLOW Urine Appearance CLEAR Urine pH 7.0 Ur Specific [place] 1.015 Urine Protein NEG Urine Glucose (UA) NEG Urine Ketones 15 Urine Blood NEG Urine Nitrite NEG Ur Leukocyte Esterase NEG Urine RBC 0 Urine WBC 0 Ur Squamous Epith Cells TRACE Urine Bacteria NONE Urine Opiates Screen Not Detected Urine Fentanyl Screen Not Detected Ur Barbiturates Screen Not Detected Ur Phencyclidine Scrn Not Detected Ur Amphetamines Screen Not Detected U Benzodiazepines Scrn Not Detected Urine Cocaine Screen Not Detected U Marijuana (THC) Screen POSITIVE H COVID-19 (ALE) COVID-19 Clin Com 07/09/21 07/09/21 10:21 11:37 MCV MCH MCHC RDW Plt Count MPV Immature Gran % (Auto) Neut % (Auto) Lymph % (Auto) [place] % (Auto) Eos % (Auto) Baso % (Auto) Lymph # (Auto) [place] # (Auto) Eos # (Auto) Baso # (Auto) Abs Immat Gran (auto) Absolute Neuts (auto) Absolute Nucleated RBC Nucleated RBC % (auto) Anion Gap Estim Creat Clear Calc Estimated GFR Random Glucose Calcium Total Bilirubin AST ALT Alkaline Phosphatase Total Creatine Kinase 4777 H Troponin I High Sens Total Protein Albumin Lipase Beta HCG, Quant Urine Color Urine Appearance Urine pH Ur Specific [place] Urine Protein Urine Glucose (UA) Urine Ketones Urine Blood Urine Nitrite Ur Leukocyte Esterase Urine RBC Urine WBC Ur Squamous Epith Cells Urine Bacteria Urine Opiates Screen Urine Fentanyl Screen Ur Barbiturates Screen Ur Phencyclidine Scrn Ur Amphetamines Screen U Benzodiazepines Scrn Urine Cocaine Screen U Marijuana (THC) Screen COVID-19 (ALE) Negative COVID-19 Clin Com See Note Imaging Radiologist's Impressions: Impressions Chest X-Ray 07/09/21 08:12 IMPRESSION: Unremarkable examination. Venous Duplex 07/09/21 08:28 IMPRESSION: No DVT demonstrated in the right lower extremity. Assessment and Plan (1) Rhabdomyolysis: Status: Acute Plan This is a 21-year-old female with history of asthma who presents to the emergency department with multiple complaints including myalgias found to have r habdomyolysis Rhabdomyolysis, cpk 4777 unclear cause continue IVF trend CPK monitor renal function Myalgias likely secondary to rhabdo peripheral neuropathy?secondary to recent flagyl use symptomatic management rule out viral syndrome if worsens will consider neuro eval dvt ppx - early ambulation code status - full code attending: dr. gregorio Quality Stroke Does the patient have a stroke diagnosis?: No VTE Prior VTE?: No VTE Risk Level:: Medical - low VTE Device Contraindication: N/A - Device Ordered VTE Drug Contraindication: Treatment Not Indicated
--- NOTE | 2021-07-09 12:41 | PM.EVENT ---
Event Note Date of Service: 07/09/21 Event Note: 21-year-old female who had recent started on antibiotics for bacterial vaginosis -earlier this month on flagyl ,also received received 3 days of fluconazole : She was taking Flagyl intermittently. She is having pain and needle sensation from 2-3 weeks, but since yesterday : Patient is having pain and needles intermittent also and myalgia -mostly in upper thighs, rib cage area. She denies any weakness but has significant pains as above. Otherwise could able to walk slowly. She denies any family member having similar symptoms, denies any use of recreational drugs except for marijuana, denies any other medication use or [id number] medications. She also denies any injury or any back pain. Physical exam: coordianted in h&p MS: pain espcially in more prominent in medial thigh area as, reproducible with palpation. To less extent rib cage area. neuro: AOX3 Eomi, perrla move all ext walked slowly on her own but limited due to pain dtr equivical face symmteric CN2-12 intact Spine area-no back deformity or back pain or any reproducible paraspinal muscle pain. Range of motion intact. psych : seems labile effect Assessment and plan coordinated in H&P note Lab imaging reviewed: CBC and BMP seems fine except rhabdo CPK is around 4 777 initially was in 3800 range but even after given fluid CPK is rising. AST 55 U tox is positive for marijuana otherwise negative. Imaging studies including chest x-ray seems fine, venous duplex study seems fine. Rhabdomyolysis: Unclear etiology Patient was given ? Possible peripheral neuropathy versus somatic symptoms versus viral syndrome. Will check respiratory panel, hold Flagyl, IV hydration, symptomatic management for pain She has intermittent symptoms, if patient does not improve then may need neurology evaluation. Trend CPK and BMP, tsh and Hba1c levels
--- NOTE | 2021-07-09 13:07 | PHA.MEDREC ---
Pharmacy Consult ? Medication Reconciliation Pharmacy has completed the medication reconciliation.Spoke with patient
[2021-07-09] MEDS: Morphine Sulfate 2 MG/ML CARTRIDGE IVPUSH ×3 (13:38→22:26)
[2021-07-09] MEDS: Gabapentin 100 MG CAPSULE PO ×2 (13:41→19:24)
[2021-07-09] MEDS: Lactated Ringers 1,000 ML 125 ML IVCONT (13:45)
[2021-07-09] MEDS: ondansetron HCL 4 MG/2 ML VIAL IVPUSH (13:45)
[2021-07-09 14:18] VITALS: BP 123/67; PULSE 90; RESP 19; O2SAT 98
[2021-07-09 14:53] LABS: Estimated Average Glucose 100 mg/dL; Hemoglobin A1c % 5.1 %
[2021-07-09 14:59] VITALS: BP 117/67; PULSE 90; RESP 18; TEMP 36.9; O2SAT 97
[2021-07-09 15:13] VITALS: BMI 19.6
[2021-07-09 15:14] LABS: Thyroid Stimulating Hormone 0.55 uIU/mL (0.32-4.0)
[2021-07-09 16:29] LABS: Magnesium 1.5 mg/dL (1.6-2.6)
[2021-07-09 19:14] VITALS: BP 121/72; PULSE 83; RESP 18; TEMP 37; O2SAT 100
[2021-07-09] MEDS: Lactated Ringers 1,000 ML 100 ML IVCONT (22:16)
[2021-07-09 23:24] VITALS: BP 105/50; PULSE 90; RESP 17; TEMP 36.2; O2SAT 98
[2021-07-10 03:29] VITALS: BP 128/68; PULSE 84; RESP 18; TEMP 36.7; O2SAT 97
[2021-07-10] MEDS: Lactated Ringers 1,000 ML 100 ML IVCONT (04:52)
[2021-07-10] MEDS: Morphine Sulfate 2 MG/ML CARTRIDGE IVPUSH ×2 (05:45→10:00)
[2021-07-10 06:43] VITALS: BP 114/58; PULSE 91; RESP 18; TEMP 36.6; O2SAT 100
[2021-07-10 06:58] LABS: Anion Gap 10 (12-20); Blood Urea Nitrogen 7 mg/dL (9-16); Carbon Dioxide 23 mmol/L (22-29); Chloride 106 mmol/L (96-108); Creatinine Clr Calc Pharmacy 87.6; Estimated Glomerular Filt Rate > 60; Glucose Random 95 mg/dL (60-115); Sodium 135 mmol/L (135-145)
[2021-07-10 08:49] LABS: Adenovirus PCR Not Detected (Not Detect.); Bordetella parapertussis PCR Not Detected (Not Detect.); Bordetella pertussis PCR Not Detected (Not Detect.); Chlamydia pneumoniae PCR Not Detected (Not Detect.); Coronavirus 229E PCR Not Detected (Not Detect.); Coronavirus HKU1 PCR Not Detected (Not Detect.); Coronavirus NL63 PCR Not Detected (Not Detect.); Coronavirus OC43 PCR Not Detected (Not Detect.); Influenza A PCR Detected (Not Detect.); Rhino/Enterovirus PCR Detected (Not Detect.); SARS-CoV-2 PCR Not Detected (Not Detect.)
[2021-07-10 08:50] LABS: Human metapneumovirus PCR Not Detected (Not Detect.); Influenza B PCR Not Detected (Not Detect.); Mycoplasma pneumoniae PCR Not Detected (Not Detect.); Parainfluenza 1 PCR Not Detected (Not Detect.); Parainfluenza 2 PCR Not Detected (Not Detect.); Parainfluenza 3 PCR Not Detected (Not Detect.); Parainfluenza 4 PCR Not Detected (Not Detect.); RSV PCR Not Detected (Not Detect.)
[2021-07-10] MEDS: LORazepam 2 MG/ML VIAL 0.5 MG IM (09:54)
[2021-07-10] MEDS: 0.9 % Sodium Chloride Flush 3 ML SYRINGE IVFLUSH (10:02)
[2021-07-10] MEDS: Gabapentin 100 MG CAPSULE PO ×3 (10:02→20:01)
[2021-07-10] MEDS: Magnesium Sulfate/H2O 2 GM/50 ML PIGGYBACK IV (10:02)
--- NOTE | 2021-07-10 10:05 | MHC.CM.PN ---
Lives in apt w/3 children. No prior services, or equipment, drives. Patient indicates she is unable to get OOB and use a walker at this time and is requesting to see PT. She also states at time of D/C, she will require transportation to be set up for her as she does not have anyone to pick her up. If she is assessed at needing in-home therapy, nursing, etc, she would states she does not have a preference for VNA services. CM to follow.
[2021-07-10 11:07] VITALS: BP 121/68; PULSE 103; RESP 18; TEMP 35.5; O2SAT 100
--- NOTE | 2021-07-10 11:11 | PM.NEUROCN ---
History of Present Illness Data of Consult Service Date: 07/10/21 Primary Care Provider: Linda Pereira MD [facility] Reason for consult: Leg weakness 21 years old woman with no significant past medical history other than asthma, sometime using marijuana and alcohol but denied any other drugs such as cocaine or stimulants or heroin, came to hospital with bilateral leg weakness and numbness. She said that she was fine and maybe had axis or [place] patterson of asthma and she was concentrating more on that and taking care of her children. She went to bed and when she woke up she was in sweat all over. She felt and numbness which was pins and needle feeling in her feet and legs and her legs were weak. Legs were also painful especially medial part of thighs and then she had similar pain and discomfort in her chest and upper body. There was no obvious explanation. She came to emergency room and was diagnosed with high CPK and a diagnosis of rhabdomyolysis was given. She was getting IV fluids and still could not, out of bed. There was no history of recent heavy physical activity or exertion or fall or trauma. Review of Systems Review of Systems: She denied any recent cold or flu except stating that may be at this time she was suffering from a cold. [facility] Past Medical History Medical History Asthma Functional capacity: independent ambulation Family History Family History Father Diabetes Social History Social History (Updated 07/09/21 @ 12:38 by SWEETIE Darden) Alcohol intake: current Alcohol intake frequency: a few times a week Patient Tobacco Use Status: Never used Tobacco Use of substances other than those prescribed or required for medical reasons: Yes Substance Use Type: Marijuana Advance Directives: No Advance Directives Information Provided: No service: No Current occupational status: employed Meds Allergies Allergy/AdvReac Type Severity Reaction Status Date / Time No Known Allergies Allergy Verified 07/09/21 15:14 Active Medications: Current Medications Acetaminophen (Acetaminophen 325 Mg Tablet) 650 mg PO Q6H PRN PRN Reason: Pain, Mild (Pain Scale 1-3) Last Admin: 07/09/21 22:21 Dose: 650 mg Documented by: Albuterol Sulfate (Albuterol Sulfate 90 Mcg 8 Gm Inhaler) 2 puff INHALE Q4H PRN PRN Reason: Shortness Of Breath Docusate Sodium (Docusate Sodium 100 Mg Capsule) 100 mg PO DAILY PRN PRN Reason: Constipation Gabapentin (Gabapentin 100 Mg Capsule) 100 mg PO TID [facility] Last Admin: 07/10/21 10:02 Dose: 100 mg Documented by: Lactated Ringer's (Lr) 1,000 mls @ 125 mls/hr IVCONT .Q8H [facility] Last Infusion: 07/10/21 09:46 Dose: 125 mls/hr Documented by: Morphine Sulfate (Morphine Sulfate 2 Mg/Ml Cartridge) 2 mg IVPUSH Q4H PRN; Protocol PRN Reason: Pain, Severe (Pain Scale 7-10) Last Admin: 07/10/21 10:00 Dose: 2 mg Documented by: Ondansetron HCl (Ondansetron Hcl 4 Mg/2 Ml Vial) 4 mg IVPUSH Q8H PRN PRN Reason: Nausea and Vomiting Last Admin: 07/09/21 13:45 Dose: 4 mg Documented by: Oseltamivir Phosphate (Oseltamivir Phosphate 75 Mg Capsule) 75 mg PO Q12H [facility] Stop: 07/14/21 23:01 Pharmacy Consult (Consult Rx Perform Med Rec) 1 each MISCELLANE ONCE PRN PRN Reason: Consult order Sodium Chloride (0.9 % Sodium Chloride Flush 3 Ml Syringe) 3 ml IVFLUSH QSHIFT [facility] Last Admin: 07/10/21 10:02 Dose: 3 ml Documented by: Home Medications Medication Instructions Recorded Confirmed Last Taken Type albuterol sulfate 90 mcg/actuation 2 inh INHALATION Q4-6H PRN 07/09/21 07/09/21 Unknown History breath activated powder inhaler Physical Exam Vital Signs: Vital Signs: Last Vital Signs Temp 96 F L 07/10/21 11:07 Pulse 103 H 07/10/21 11:07 Resp 18 07/10/21 11:07 BP 121/68 07/10/21 11:07 Pulse Ox 100 07/10/21 11:07 BMI result Body Mass Index 19.6 Neuro: Other: She was alert and awake with normal spontaneity of speech fluency comprehension and affect. Face was symmetrical. There was no ptosis. There was minimal upper extremity weakness. Hand grasp was slightly weak. She could not lift her legs against gravity at thigh but was able to barely bend her knees. She was able to wiggle her toes. Deep tendon reflexes were trace to absent in legs and 1+ in arms with flat plantars. Joint position sensation was diminished in toes. She could not come out of bed without assistance. Speech was normal. Results Labs CBC & Chem 7: 07/09/21 07:56 07/10/21 06:08 Labs: BMP 07/10/21 06:08 Sodium 135 Potassium 4.0 Chloride 106 Carbon Dioxide 23 BUN 7 L Creatinine 0.87 Calcium 9.0 D Cardiac Enzymes 07/09/21 07/10/21 Range/Units 10:21 06:08 Total Creatine Kinase 4777 H 27951 H D (26-140) U/L Chest x-ray did not reveal any significant abnormality. EKG was okay. Assessment and Plan (1) Rhabdomyolysis: Status: Acute Rhabdomyolysis of unknown etiology. It could be viral syndrome. She denied any use of drugs other than alcohol and marijuana, which could trigger this type of syndrome. She was not known to have any metabolic disorders or any known genetic disorders before this. As she woke up with this syndrome, I would consider generalized convulsion as a possibility, but increasing level of CPK were somewhat against that possibility too. There was also a possibility of underlying mitochondrial disorder. At this time I recommend appropriate hydration and management of rhabdomyolysis while following renal function, involving PT OT, checking serum lactate level, and recommending to the patient that she should avoid all drug of abuse or any drugs that could be toxic to muscles. Procedures Date of Service Date of Service: 07/10/21
[2021-07-10] MEDS: Oseltamivir Phosphate 75 MG CAPSULE PO ×2 (11:54→22:50)
[2021-07-10] MEDS: Lactated Ringers 1,000 ML 150 ML IVCONT (12:54)
--- NOTE | 2021-07-10 13:09 | HO.PM.IMPN ---
Subjective Subjective Date of Service: 07/10/21 <SWEETIE Darden - Last Filed: 07/10/21 13:27> 07/10/21 <Yusuf Gregorio MD - Last Filed: 07/10/21 16:00> Interval History: seen and examined this morning cpk trending up, RPP +for flu and rhinovirus still complaining of posterior thigh pain and rib pain, difficulty ambulating no fevers, chills, cough <SWEETIE Darden - Last Filed: 07/10/21 13:27> Review of Systems Review of Systems: Yes all other systems are reviewed and are negative <SWEETIE Darden - Last Filed: 07/10/21 13:27> Constitutional Constitutional: Denies chills and Denies fever(s) <SWEETIE Darden - Last Filed: 07/10/21 13:27> Cardiovascular Cardiovascular: Denies palpitations and Denies dyspnea <SWEETIE Darden - Last Filed: 07/10/21 13:27> Respiratory Respiratory: Denies cough and Denies dyspnea <SWEETIE Darden - Last Filed: 07/10/21 13:27> Gastrointestinal Gastrointestinal: Denies abdominal pain, Denies nausea and Denies vomiting <SWEETIE Dardne - Last Filed: 07/10/21 13:27> Endocrine Endocrine: Denies palpitations <SWEETIE Darden - Last Filed: 07/10/21 13:27> Physical Exam Vital Signs: Vital Signs: Last Vital Signs Temp 96 F L 07/10/21 11:07 Pulse 103 H 07/10/21 11:07 Resp 18 07/10/21 11:07 BP 121/68 07/10/21 11:07 Pulse Ox 100 07/10/21 11:07 BMI result Body Mass Index 19.6 <SWEETIE Darden - Last Filed: 07/10/21 13:27> Const: Other: mood labile, intermittent tears, complaining of pain; dramatic response to palpating ribs and movement in general <SWEETIE Darden Last Filed: 07/10/21 13:27> General: alert and awake <SWEETIE Darden - Last Filed: 07/10/21 13:27> Nutritional Appearance: average body habitus <Aaliyah Gómez SWEETIE Penaloza - Last Filed: 07/10/21 13:27> Orientation/consciousness: patient oriented x3 <Aaliyah SWEETIE Hampton - Last Filed: 07/10/21 13:27> Eyes: Pupils: Equal, round and reactive pupils present <AaliyahSWEETIE Meier - Last Filed: 07/10/21 13:27> EOM: EOMs intact bilaterally <Aaliyah Dalia Penaloza MO - Last Filed: 07/10/21 13:27> Chest: Other: tenderness to palpation b/l anterior rib cage <AaliyahSWEETIE Smith - Last Filed: 07/10/21 13:27> Resp: Effort & Inspection: normal respiratory effort and able to speak in complete sentences <AaliyahSWEETIE Meier Last Filed: 07/10/21 13:27> Cardio: Rate: regular rate <AaliyahSWEETIE Meier - Last Filed: 07/10/21 13:27> Heart sounds: S1 normal heart sound present and S2 normal heart sound present <Aaliyah Dalia Penaloza MO - Last Filed: 07/10/21 13:27> GI: Inspection: No distended <Aaliyahann Penaloza MO - Last Filed: 07/10/21 13:27> Palpation (GI): Soft to palpation and nontender <Aaliyahann Penaloza MO - Last Filed: 07/10/21 13:27> Neuro: Other: was able to ambulate independently with slow steady gait but reported discomfort in legs <Aaliyahann Penaloza MO - Last Filed: 07/10/21 13:27> General: patient oriented x3 and CN's II-XI intact bilaterally <SWEETIE Darden - Last Filed: 07/10/21 13:27> Cranial nerves: Yes Equal, round and reactive pupils present <SWEETIE Darden - Last Filed: 07/10/21 13:27> Extrem: Other: extremities warm; able to move all 4 extremities spontaneously; reports pain in bilateral inner thighs with palpation and ambulation <SWEETIE Darden - Last Filed: 07/10/21 13:27> Psych: Affect: Labile affect present <SWEETIE Darden - Last Filed: 07/10/21 13:27> Objective Data Active Medications Acetaminophen (Acetaminophen 325 Mg Tablet) 650 mg PO Q6H PRN PRN Reason: Pain, Mild (Pain Scale 1-3) Last Admin: 07/09/21 22:21 Dose: 650 mg Documented by: CORBIN Albuterol Sulfate (Albuterol Sulfate 90 Mcg 8 Gm Inhaler) 2 puff INHALE Q4H PRN PRN Reason: Shortness Of Breath Docusate Sodium (Docusate Sodium 100 Mg Capsule) 100 mg PO DAILY PRN PRN Reason: Constipation Gabapentin (Gabapentin 100 Mg Capsule) 100 mg PO TID [facility] Last Admin: 07/10/21 10:02 Dose: 100 mg Documented by: RUBINA Lactated Ringer's (Lr) 1,000 mls @ 150 mls/hr IVCONT .Q6H40M [facility] Last Admin: 07/10/21 12:54 Dose: 150 mls/hr Documented by: RUBINA Morphine Sulfate (Morphine Sulfate 2 Mg/Ml Cartridge) 2 mg IVPUSH Q4H PRN; Protocol PRN Reason: Pain, Severe (Pain Scale 7-10) Last Admin: 07/10/21 10:00 Dose: 2 mg Documented by: RUBINA Ondansetron HCl (Ondansetron Hcl 4 Mg/2 Ml Vial) 4 mg IVPUSH Q8H PRN PRN Reason: Nausea and Vomiting Last Admin: 07/09/21 13:45 Dose: 4 mg Documented by: DELVIN Oseltamivir Phosphate (Oseltamivir Phosphate 75 Mg Capsule) 75 mg PO Q12H [facility] Stop: 07/14/21 23:01 Last Admin: 07/10/21 11:54 Dose: 75 mg Documented by: RUBINA Pharmacy Consult (Consult Rx Perform Med Rec) 1 each MISCELLANE ONCE PRN PRN Reason: Consult order Sodium Chloride (0.9 % Sodium Chloride Flush 3 Ml Syringe) [facility] Last Admin: 07/10/21 10:02 Dose: 3 ml Documented by: RUBINA <SWEETIE Darden - Last Filed: 07/10/21 13:27> Labs CBC & Chem 7: : 07/09/21 07:56 07/10/21 06:08 <SWEETIE Darden - Last Filed: 07/10/21 13:27> Labs: Laboratory Results - last 24 hr 07/09/21 07/09/21 07/09/21 10:21 10:21 14:40 Anion Gap Estim Creat Clear Calc Estimated GFR Random Glucose Estimat Average Glucose 100 Hemoglobin A1c % 5.1 Calcium Magnesium 1.5 L Total Creatine Kinase TSH 0.55 Respiratory Panel Zayas See Note Adenovirus (Rapid PCR) Not Detected B.pert (TEM-PCR) Not Detected B.parapertussis DNA PCR Not Detected C. pneumoniae DNA (PCR) Not Detected Coronavirus OC43 (PCR) Not Detected Coronavirus HKU1 (PCR) Not Detected Coronavirus 229E (PCR) Not Detected Coronavirus NL63 (PCR) Not Detected Human Metapneumovir PCR Not Detected Influenza A (RT-PCR) Detected A Influenza B (RT-PCR) Not Detected M. pneumoniae (PCR) Not Detected Parainfluenza 1 (PCR) Not Detected Parainfluenza 2 (PCR) Not Detected Parainfluenza 3 (PCR) Not Detected Parainfluenza 4 (PCR) Not Detected RSV (PCR) Not Detected Entero/Rhino (PCR) Detected A SARS-CoV-2 RNA (RT-PCR) Not Detected 07/10/21 06:08 Anion Gap 10 L Estim Creat Clear Calc 87.6 Estimated GFR > 60 Random Glucose 95 Estimat Average Glucose Hemoglobin A1c % Calcium 9.0 D Magnesium Total Creatine Kinase 38489 H D TSH Respiratory Panel Zayas Adenovirus (Rapid PCR) B.pert (TEM-PCR) B.parapertussis DNA PCR C. pneumoniae DNA (PCR) Coronavirus OC43 (PCR) Coronavirus HKU1 (PCR) Coronavirus 229E (PCR) Coronavirus NL63 (PCR) Human Metapneumovir PCR Influenza A (RT-PCR) Influenza B (RT-PCR) M. pneumoniae (PCR) Parainfluenza 1 (PCR) Parainfluenza 2 (PCR) Parainfluenza 3 (PCR) Parainfluenza 4 (PCR) RSV (PCR) Entero/Rhino (PCR) SARS-CoV-2 RNA (RT-PCR) <SWEETIE Darden - Last Filed: 07/10/21 13:27> Assessment and Plan (1) Rhabdomyolysis: Status: Acute <SWEETIE Darden - Last Filed: 07/10/21 13:27> (2) Influenza A: Status: Acute <SWEETIE Darden - Last Filed: 07/10/21 13:27> (3) Rhinovirus infection: Status: Acute <SWEETIE Darden - Last Filed: 07/10/21 13:27> (4) Hypomagnesemia: Status: Acute <SWEETIE Darden - Last Filed: 07/10/21 13:27> Plan This is a 21-year-old female with history of asthma who presents to the emergency department with multiple complaints including myalgias found to have rhabdomyolysis Rhabdomyolysis, cpk up to 12,172 from 4777 unclear cause continue IVF trend CPK monitor renal function, currently wnl nephrology consult pending Myalgias/leg weakness likely secondary to rhabdo vs viral syndrome symptomatic management seen by neuro rec to treat rhabdo PT eval Infuenza A/rhinovirus tamiflu contact precautions Hypomagnesemia replace and follow dvt ppx - early ambulation/mehcanical devices code status - full code attending: dr. gregorio pt requires ongoing inpatient stay due to leg weakness/IVF/further workup and management of rhabdo <SWEETIE Darden - Last Filed: 07/10/21 13:27> Quality Stroke Does the patient have a stroke diagnosis?: No <SWEETIE Darden - Last Filed: 07/10/21 13:27> VTE Prior VTE?: No <SWEETIE Darden - Last Filed: 07/10/21 13:27> VTE Risk Level:: Medical - low <SWEETIE Darden - Last Filed: 07/10/21 13:27> VTE Device Contraindication: N/A - Device Ordered <SWEETIE Darden - Last Filed: 07/10/21 13:27> VTE Drug Contraindication: Treatment Not Indicated <SWEETIE Darden - Last Filed: 07/10/21 13:27>
[2021-07-10 15:35] LABS: Magnesium 2.2 mg/dL (1.6-2.6)
[2021-07-10 15:48] VITALS: BP 117/66; PULSE 91; RESP 18; TEMP 37.1; O2SAT 100
--- NOTE | 2021-07-10 16:22 | PM.CNNEP ---
History of Present Illness Reason for Consult Consult date: 07/10/21 Reason for consult: Elevated CK Levels Chief Complaint Chief complaint: Rhabdo,myalgias History of Present Illness Narrative: 21 year old female with no significant past medical history who presented to the ED on 07/09 with multiple complaints. She reported bilateral inner thigh pain and rib pain that started the day prior to presentation. She describes paresthesias of both feet. She was recently prescribed 7 day course of flagyl earlier in the month for BV . In the ED, her work up was significant for CPK of 3828, she received IVF and CPK increased to 4777. CXR and DVT study were both unremarkable. Due to elevated CPK the decision was made to admit her for further management. She uses marijuana but denies use of any other drugs. Tox screen was positive for marijuana. Patient found to be flu A positive. She denies any recent surgery, trauma, injury of any kind. She denies any excessive physical activity. She has not taken any over the counter medications or supplements. No reported NSAID use. ROS otherwise negative. Review of Systems Review of Systems Yes all other systems are reviewed and are negative Constitutional: Reports as per HPI [facility] Past Medical History Medical History Asthma Functional capacity: independent ambulation Family History Family History Father Diabetes Social History Social History (Updated 07/09/21 @ 12:38 by SWEETIE Darden) Alcohol intake: current Alcohol intake frequency: a few times a week Patient Tobacco Use Status: Never used Tobacco Use of substances other than those prescribed or required for medical reasons: Yes Substance Use Type: Marijuana Advance Directives: No Advance Directives Information Provided: No service: No Current occupational status: employed Meds Allergies Allergy/AdvReac Type Severity Reaction Status Date / Time No Known Allergies Allergy Verified 07/09/21 15:14 Active Medications: Current Medications Acetaminophen (Acetaminophen 325 Mg Tablet) 650 mg PO Q6H PRN PRN Reason: Pain, Mild (Pain Scale 1-3) Last Admin: 07/09/21 22:21 Dose: 650 mg Documented by: Albuterol Sulfate (Albuterol Sulfate 90 Mcg 8 Gm Inhaler) 2 puff INHALE Q4H PRN PRN Reason: Shortness Of Breath Docusate Sodium (Docusate Sodium 100 Mg Capsule) 100 mg PO DAILY PRN PRN Reason: Constipation Gabapentin (Gabapentin 100 Mg Capsule) 100 mg PO TID ON LICENSE OF [facility] Last Admin: 07/10/21 15:50 Dose: 100 mg Documented by: Lactated Ringer's (Lr) 1,000 mls @ 200 mls/hr IVCONT .Q5H ON [facility] OF [facility] Last Admin: 07/10/21 12:54 Dose: 150 mls/hr Documented by: Morphine Sulfate (Morphine Sulfate 2 Mg/Ml Cartridge) 2 mg IVPUSH Q4H PRN; Protocol PRN Reason: Pain, Severe (Pain Scale 7-10) Last Admin: 07/10/21 10:00 Dose: 2 mg Documented by: Ondansetron HCl (Ondansetron Hcl 4 Mg/2 Ml Vial) 4 mg IVPUSH Q8H PRN PRN Reason: Nausea and Vomiting Last Admin: 07/09/21 13:45 Dose: 4 mg Documented by: Oseltamivir Phosphate (Oseltamivir Phosphate 75 Mg Capsule) 75 mg PO Q12H [facility] OF [facility] Stop: 07/14/21 23:01 Last Admin: 07/10/21 11:54 Dose: 75 mg Documented by: Pharmacy Consult (Consult Rx Perform Med Rec) 1 each MISCELLANE ONCE PRN PRN Reason: Consult order Sodium Chloride (0.9 % Sodium Chloride Flush 3 Ml Syringe) 3 ml IVFLUSH QSHIFT ON LICENSE OF [facility] Last Admin: 07/10/21 15:51 Dose: Not Given Documented by: Home Medications Medication Instructions Recorded Confirmed Last Taken Type albuterol sulfate 90 mcg/actuation 2 inh INHALATION Q4-6H PRN 07/09/21 07/09/21 Unknown History breath activated powder inhaler Physical Exam Vital Signs: Last Vital Signs Temp 98.7 F 07/10/21 15:48 Pulse 91 07/10/21 15:48 Resp 18 07/10/21 15:48 BP 117/66 07/10/21 15:48 Pulse Ox 100 07/10/21 15:48 BMI result Body Mass Index 19.6 Const General: cooperative, comfortable and no acute distress Orientation/consciousness: oriented to person, oriented to place, oriented to time and patient oriented x3 HEENT Head: Yes normocephalic and Yes atraumatic Neck Neck: Yes no JVD Resp Auscultation: clear to auscultation bilaterally Cardio Jugular venous distension: no JVD Rate: regular rate Rhythm: regular rhythm Heart sounds: S1 normal heart sound present and S2 normal heart sound present GI Auscultation: normal bowel sounds Neuro General: oriented to person, oriented to place, oriented to time and patient oriented x3 Extrem General: Yes no clubbing, cyanosis or edema Results Lab Results Result Diagrams: 07/09/21 07:56 07/10/21 06:08 Lab results: Chemistry 07/09/21 07/10/21 07:56 06:08 Sodium 135 135 Potassium 4.6 4.0 Carbon Dioxide 21 L 23 BUN 11 7 L Creatinine 0.91 0.87 Calcium 10.0 9.0 D Hematology 07/09/21 07:56 WBC 5.3 Hgb 14.8 Plt Count 264 Urinalysis 07/09/21 08:45 Urine Color YELLOW Urine Appearance CLEAR Urine pH 7.0 Ur Specific [place] 1.015 Urine Protein NEG Urine Glucose (UA) NEG Urine Ketones 15 Urine Blood NEG Urine Nitrite NEG Ur Leukocyte Esterase NEG Urine RBC 0 Urine WBC 0 Ur Squamous Epith Cells TRACE Assessment and Plan (1) Hypomagnesemia: Status: Acute (2) Influenza A: Status: Acute (3) Rhabdomyolysis: Status: Acute Plan Plan: No evidence of NEISHA from rhabdomyolysis. UA relatively bland. No hematuria. Flu A pos. Continues to have elevated CK level. Suggest to continue IVF's with goal uop 100-200 cc/hr check calcium and phosphorus daily. monitor renal panel and Mg daily. Procedures Date of Service Date of Service: 07/10/21
[2021-07-10 16:58] LABS: Lactic Acid 1.5 mmol/L (0.5-2.0)
[2021-07-10] MEDS: Lactated Ringers 1,000 ML 200 ML IVCONT ×2 (18:00→22:52)
[2021-07-10 19:02] VITALS: BP 117/73; PULSE 78; RESP 18; TEMP 37.7; O2SAT 99
[2021-07-10] MEDS: Acetaminophen 325 MG TABLET 650 MG PO (20:01)
[2021-07-10 23:48] VITALS: BP 108/61; PULSE 86; RESP 18; TEMP 36.6; O2SAT 99
[2021-07-11] MEDS: Lactated Ringers 1,000 ML 200 ML IVCONT ×2 (03:45→08:51)
[2021-07-11 04:00] VITALS: BP 121/80; PULSE 80; RESP 18; TEMP 36.6; O2SAT 100
[2021-07-11] MEDS: Morphine Sulfate 2 MG/ML CARTRIDGE IVPUSH ×2 (05:55→12:30)
[2021-07-11 06:25] LABS: Anion Gap 11 (12-20); Blood Urea Nitrogen 8 mg/dL (9-16); Calcium 8.9 mg/dL (8.4-10.2); Carbon Dioxide 26 mmol/L (22-29); Chloride 109 mmol/L (96-108); Creatinine Clr Calc Pharmacy 104.4; Estimated Glomerular Filt Rate > 60; Glucose Random 96 mg/dL (60-115); Phosphorus 3.9 mg/dL (2.7-4.5); Potassium 4.5 mmol/L (3.3-5.1); Sodium 141 mmol/L (135-145)
[2021-07-11 07:27] VITALS: BP 109/73; PULSE 68; RESP 18; TEMP 37.2; O2SAT 100
[2021-07-11] MEDS: Gabapentin 100 MG CAPSULE PO ×3 (08:50→21:06)
[2021-07-11] MEDS: Oseltamivir Phosphate 75 MG CAPSULE PO ×2 (10:17→22:45)
[2021-07-11] MEDS: ondansetron HCL 4 MG/2 ML VIAL IVPUSH (10:17)
--- NOTE | 2021-07-11 11:11 | PM.PNNEP ---
Subjective Subjective Date of Service: 07/15/21 Interval history: Event noted Physical Exam Vital Signs: Vital Signs: Last Vital Signs Temp 98.9 F 07/11/21 07:27 Pulse 68 07/11/21 07:27 Resp 18 07/11/21 07:27 BP 109/73 07/11/21 07:27 Pulse Ox 100 07/11/21 07:27 BMI result Body Mass Index 19.6 Objective Data Labs CBC & Chem 7: 07/09/21 07:56 07/14/21 08:31 Labs: Laboratory Results - last 24 hr 07/10/21 07/10/21 07/11/21 14:25 16:34 05:53 Sodium 141 Potassium 4.5 Chloride 109 H Carbon Dioxide 26 Anion Gap 11 L BUN 8 L Creatinine 0.73 Estim Creat Clear Calc 104.4 Estimated GFR > 60 Random Glucose 96 Lactic Acid 1.5 Calcium 8.9 Phosphorus 3.9 Magnesium 2.2 Total Creatine Kinase 65674 H Procedures Date of Service Date of Service: 07/11/21 Assessment & Plan Assessment and plan (1) Hypomagnesemia: Start date: 07/11/21 Status: Acute Plan Hypomagnesemia Corrected Renal function at baseline Time Spent With Patient Time: Total time spent is greater than 50% in coordination of care (as documented) at patient's floor/unit and/or counseling patient: Progress Note: Quality Stroke Does the patient have a stroke diagnosis?: No
[2021-07-11 11:59] VITALS: BP 113/55; PULSE 78; RESP 18; TEMP 37; O2SAT 100
--- NOTE | 2021-07-11 12:08 | HO.PM.IMPN ---
Subjective Subjective Date of Service: 07/11/21 Interval History: Legs painful. Very weak in legs but improving. No fever/chills. Minimal cough. Review of Systems Review of Systems: Yes all other systems are reviewed and are negative Physical Exam Vital Signs: Vital Signs: Last Vital Signs Temp 98.6 F 07/11/21 11:59 Pulse 78 07/11/21 11:59 Resp 18 07/11/21 11:59 BP 113/55 L 07/11/21 11:59 Pulse Ox 100 07/11/21 11:59 BMI result Body Mass Index 19.6 Gen: in no acute distress HEENT: sclera anicteric, moist mucus membranes Neck: supple Lungs: clear to auscultation bilaterally Heart: regular rate and rhythm, no murmurs Abd: soft, non-tender, non-distended Ext: no edema Skin: warm/well-perfused Neuro: 3/5 strength bilateral lower extremities, absent patellar reflexes Psych: appropriate affect Objective Data Active Medications Acetaminophen (Acetaminophen 325 Mg Tablet) 650 mg PO Q6H PRN PRN Reason: Pain, Mild (Pain Scale 1-3) Last Admin: 07/10/21 20:01 Dose: 650 mg Documented by: GRACIELA Albuterol Sulfate (Albuterol Sulfate 90 Mcg 8 Gm Inhaler) 2 puff INHALE Q4H PRN PRN Reason: Shortness Of Breath Docusate Sodium (Docusate Sodium 100 Mg Capsule) 100 mg PO DAILY PRN PRN Reason: Constipation Gabapentin (Gabapentin 100 Mg Capsule) 100 mg PO TID [facility] Last Admin: 07/11/21 08:50 Dose: 100 mg Documented by: RUBINA Lactated Ringer's (Lr) 1,000 mls @ 200 mls/hr IVCONT .Q5H [facility] Last Admin: 07/11/21 08:51 Dose: 200 mls/hr Documented by: RUBINA Morphine Sulfate (Morphine Sulfate 2 Mg/Ml Cartridge) 2 mg IVPUSH Q4H PRN; Protocol PRN Reason: Pain, Severe (Pain Scale 7-10) Last Admin: 07/11/21 05:55 Dose: 2 mg Documented by: GRACIELA Ondansetron HCl (Ondansetron Hcl 4 Mg/2 Ml Vial) 4 mg IVPUSH Q8H PRN PRN Reason: Nausea and Vomiting Last Admin: 07/11/21 10:17 Dose: 4 mg Documented by: RUBINA Oseltamivir Phosphate (Oseltamivir Phosphate 75 Mg Capsule) 75 mg PO Q12H [facility] Stop: 07/14/21 23:01 Last Admin: 07/11/21 10:17 Dose: 75 mg Documented by: RUBINA Pharmacy Consult (Consult Rx Perform Med Rec) 1 each MISCELLANE ONCE PRN PRN Reason: Consult order Sodium Chloride (0.9 % Sodium Chloride Flush 3 Ml Syringe) 3 ml IVFLUSH QSHIFT [facility] Last Admin: 07/11/21 08:51 Dose: Not Given Documented by: RUBINA Non-Admin Reason: IV Running Labs CBC & Chem 7: 07/09/21 07:56 07/11/21 05:53 Labs: Laboratory Results - last 24 hr 07/10/21 07/10/21 07/11/21 14:25 16:34 05:53 Anion Gap 11 L Estim Creat Clear Calc 104.4 Estimated GFR > 60 Random Glucose 96 Lactic Acid 1.5 Calcium 8.9 Phosphorus 3.9 Magnesium 2.2 Total Creatine Kinase 77759 H Assessment and Plan (1) Rhabdomyolysis: Status: Acute (2) Influenza A: Status: Acute (3) Rhinovirus infection: Status: Acute (4) Hypomagnesemia: Status: Acute Plan hospital d#3, 21yo F with asthma presenting with myalgias, admitted for rhabdomyolysis, found to have influenza A + rhinovirus, also lower extremity weakness # rhabdomyolysis - suspect myositis from influenza, CPK peaked and trending down, continue IV fluid hydration, Nephrology following # leg weakness - due to pain from myositis? discuss possibility of GBS with Neurology # influenza A _ rhinovirus - oseltamivir d#3/, droplet precautions # hypomagnesemia - repleted # VTE ppx - SCDs # dispo - AIR recommended Quality Stroke Does the patient have a stroke diagnosis?: No VTE Prior VTE?: No VTE Risk Level:: Medical - low VTE Device Contraindication: N/A - Device Ordered VTE Drug Contraindication: Treatment Not Indicated
[2021-07-11] MEDS: 0.9 % Sodium Chloride Flush 3 ML SYRINGE IVFLUSH (14:59)
--- NOTE | 2021-07-11 15:12 | MHC.CM.PN ---
PATIENT REQUESTING TO SPEAK WITH CASE MANAGEMENT SHE STATES THAT BECAUSE SHE LIVES ON THE [address], HER [facility] MANAGER [employer]PORATE WANTS TO KNOW IF SHE NEEDS TO BE MOVED TO THE FIRST FLOOR. PATIENT REMINDED THAT SHE IS NOT YET DISCHARGED, AND PHYSICAL THERAPY IS CURRENTLY RECOMMENDING ACUTE (INPATIENT) REHAB STAY. SHE IS ALSO SCHEDULED FOR AN LP TOMORROW. CALL TO AYLIN VILLAGOMEZ ([facility]) AT [phone] (PER PATIENT REQUEST WHO GIVES PERMISSION TO SHARE INFORMATION WITH ) AYLIN UPDATED ON PROGRESS TOWARDS DC.
[2021-07-11 15:24] VITALS: BP 133/73; PULSE 75; RESP 15; TEMP 37.1; O2SAT 100
[2021-07-11] MEDS: 0.9 % Sodium Chloride 1,000 ML 100 ML IVCONT (18:42)
[2021-07-11 19:05] VITALS: BP 107/66; PULSE 86; RESP 14; TEMP 37.1; O2SAT 100
[2021-07-11 23:26] VITALS: BP 129/67; PULSE 51; RESP 14; TEMP 36.4; O2SAT 100
[2021-07-12] VITALS (7 sets, daily range): BP systolic 91–122; BP diastolic 52–79; PULSE 60–95; RESP 14–18; TEMP 36.6–37.3; O2SAT 99–100
[2021-07-12] MEDS: 0.9 % Sodium Chloride 1,000 ML 100 ML IVCONT ×2 (04:01→15:51)
[2021-07-12] MEDS: ondansetron HCL 4 MG/2 ML VIAL IVPUSH (05:20)
[2021-07-12] MEDS: Morphine Sulfate 2 MG/ML CARTRIDGE IVPUSH ×3 (05:20→13:01)
[2021-07-12] MEDS: HYDROmorphone HCl 1 MG/ML SYRINGE 0.6 MG IVPUSH (06:33)
[2021-07-12] MEDS: Gabapentin 100 MG CAPSULE PO ×3 (07:36→20:50)
[2021-07-12 10:42] LABS: INTERNATIONAL NORM RATIO 1.1 (0.9-1.1); Prothrombin Time 12.1 SEC (9.9-13.0)
[2021-07-12 10:47] LABS: Anion Gap 10 (12-20); Blood Urea Nitrogen 8 mg/dL (9-16); Calcium 9.3 mg/dL (8.4-10.2); Carbon Dioxide 27 mmol/L (22-29); Chloride 108 mmol/L (96-108); Creatinine Clr Calc Pharmacy 92.9; Estimated Glomerular Filt Rate > 60; Glucose Random 95 mg/dL (60-115); Magnesium 1.7 mg/dL (1.6-2.6); Phosphorus 3.6 mg/dL (2.7-4.5); Potassium 4.1 mmol/L (3.3-5.1); Sodium 141 mmol/L (135-145)
--- NOTE | 2021-07-12 10:53 | P.PNIM_ITS ---
Subjective Subjective Date of Service: 07/12/21 Interval History: No fever. Mild dry cough. Not short of breath. Ongoing leg muscle pain and weakness. Review of Systems Review of Systems: Yes all other systems are reviewed and are negative Physical Exam Vital Signs: Vital Signs: Last Vital Signs Temp 99.2 F 07/12/21 08:00 Pulse 72 07/12/21 08:00 Resp 14 07/12/21 08:00 BP 107/65 07/12/21 08:00 Pulse Ox 100 07/12/21 08:00 BMI result Body Mass Index 19.6 Gen: in no acute distress HEENT: sclera anicteric, moist mucus membranes Neck: supple Lungs: clear to auscultation bilaterally Heart: regular rate and rhythm, no murmurs Abd: soft, non-tender, non-distended Ext: no edema Skin: warm/well-perfused Neuro: 3/5 strength bilateral lower extremities Psych: appropriate affect Objective Data Active Medications Acetaminophen (Acetaminophen 325 Mg Tablet) 650 mg PO Q6H PRN PRN Reason: Pain, Mild (Pain Scale 1-3) Last Admin: 07/10/21 20:01 Dose: 650 mg Documented by: GRACIELA Albuterol Sulfate (Albuterol Sulfate 90 Mcg 8 Gm Inhaler) 2 puff INHALE Q4H PRN PRN Reason: Shortness Of Breath Docusate Sodium (Docusate Sodium 100 Mg Capsule) 100 mg PO DAILY PRN PRN Reason: Constipation Gabapentin (Gabapentin 100 Mg Capsule) 100 mg PO TID [facility] Last Admin: 07/12/21 07:36 Dose: 100 mg Documented by: BRENT Sodium Chloride (Ns) 1,000 mls @ 100 mls/hr IVCONT .Q10H [facility] Last Admin: 07/12/21 04:01 Dose: 100 mls/hr Documented by: BRENT Morphine Sulfate (Morphine Sulfate 2 Mg/Ml Cartridge) 2 mg IVPUSH Q4H PRN; Protocol PRN Reason: Pain, Severe (Pain Scale 7-10) Last Admin: 07/12/21 10:10 Dose: 2 mg Documented by: LILI Ondansetron HCl (Ondansetron Hcl 4 Mg/2 Ml Vial) 4 mg IVPUSH Q8H PRN PRN Reason: Nausea and Vomiting Last Admin: 07/12/21 05:20 Dose: 4 mg Documented by: BRENT Oseltamivir Phosphate (Oseltamivir Phosphate 75 Mg Capsule) 75 mg PO Q12H [facility] Stop: 07/14/21 23:01 Last Admin: 07/11/21 22:45 Dose: 75 mg Documented by: BRENT Pharmacy Consult (Consult Rx Perform Med Rec) 1 each MISCELLANE ONCE PRN PRN Reason: Consult order Sodium Chloride (0.9 % Sodium Chloride Flush 3 Ml Syringe) 3 ml IVFLUSH QSHIFT [facility] Last Admin: 07/12/21 07:35 Dose: Not Given Documented by: BRENT Non-Admin Reason: IV Running Labs CBC & Chem 7: 07/09/21 07:56 07/12/21 10:12 Labs: Laboratory Results - last 24 hr 07/12/21 07/12/21 10:12 10:12 PT 12.1 INR 1.1 APTT 31.0 Anion Gap 10 L Estim Creat Clear Calc 92.9 Estimated GFR > 60 Random Glucose 95 Calcium 9.3 Phosphorus 3.6 Magnesium 1.7 Assessment and Plan (1) Rhabdomyolysis: Status: Acute (2) Influenza A: Status: Acute (3) Rhinovirus infection: Status: Acute (4) Hypomagnesemia: Status: Acute Plan hospital d#4 for this 21yo F with asthma presenting with myalgias, admitted for rhabdomyolysis, found to have influenza A + rhinovirus, also severe lower extremity weakness # rhabdomyolysis - suspect myositis from influenza, CPK peaked and trending down, continue IV fluid hydration, Nephrology following # leg weakness - due to pain from myositis vs ?GBS- LP today to clarify. Neurology following. CSF fluid studies ordered # influenza A plus rhinovirus - oseltamivir d#4/5, droplet precautions - ID consult re: ?neurologic manifestations of influenza # hypomagnesemia - repleted # VTE ppx - SCDs # dispo - AIR recommended Updated family at bedside Quality Stroke Does the patient have a stroke diagnosis?: No VTE Prior VTE?: No VTE Risk Level:: Medical - low VTE Device Contraindication: N/A - Device Ordered VTE Drug Contraindication: Treatment Not Indicated
[2021-07-12 11:02] LABS: HIV AB/AG Nonreactive (Nonreactive); HIV Num 1 0.06 S/CO (0.00-0.99)
[2021-07-12 11:06] LABS: HCG Quantitative < 2 mIU/mL; TSH reflex Free T4 2.02 uIU/mL (0.32-4.0)
[2021-07-12] MEDS: Oseltamivir Phosphate 75 MG CAPSULE PO ×2 (11:43→22:03)
--- NOTE | 2021-07-12 13:52 | P.CNID_ITS ---
History of Present Illness Data of Consult Service Date: 07/12/21 Requesting physician: Teddy Roblero Primary Care Provider: Linda Pereira MD HPI Reason for consult: weakness lower extremities,flu A She woke up with acute weakness lower extremities and inability to lift legs. She has rhabdomyolysis and positive flu A She is HIV negative Review of Systems Review of Systems: Yes all other systems are reviewed and are negative PMFSH Past Medical History Medical History Asthma Functional capacity: independent ambulation Family History Family History Father Diabetes Family history: reviewed and not pertinent Social History Social History Alcohol intake: current Alcohol intake frequency: a few times a week Patient Tobacco Use Status: Never used Tobacco Use of substances other than those prescribed or required for medical reasons: Yes Substance Use Type: Marijuana Advance Directives: No Advance Directives Information Provided: No service: No Current occupational status: employed Meds Allergies Allergy/AdvReac Type Severity Reaction Status Date / Time No Known Allergies Allergy Verified 07/09/21 15:14 Active Medications: Current Medications Acetaminophen (Acetaminophen 325 Mg Tablet) 650 mg PO Q6H PRN PRN Reason: Pain, Mild (Pain Scale 1-3) Last Admin: 07/10/21 20:01 Dose: 650 mg Documented by: Albuterol Sulfate (Albuterol Sulfate 90 Mcg 8 Gm Inhaler) 2 puff INHALE Q4H PRN PRN Reason: Shortness Of Breath Docusate Sodium (Docusate Sodium 100 Mg Capsule) 100 mg PO DAILY PRN PRN Reason: Constipation Gabapentin (Gabapentin 100 Mg Capsule) 100 mg PO TID [facility] Last Admin: 07/12/21 07:36 Dose: 100 mg Documented by: Sodium Chloride (Ns) 1,000 mls @ 100 mls/hr IVCONT .Q10H ADELIA Last Infusion: 07/12/21 13:37 Dose: 0 mls/hr Documented by: Morphine Sulfate (Morphine Sulfate 2 Mg/Ml Cartridge) 2 mg IVPUSH Q4H PRN; Protocol PRN Reason: Pain, Severe (Pain Scale 7-10) Last Admin: 07/12/21 13:01 Dose: 2 mg Documented by: Ondansetron HCl (Ondansetron Hcl 4 Mg/2 Ml Vial) 4 mg IVPUSH Q8H PRN PRN Reason: Nausea and Vomiting Last Admin: 07/12/21 05:20 Dose: 4 mg Documented by: Oseltamivir Phosphate (Oseltamivir Phosphate 75 Mg Capsule) 75 mg PO Q12H [facility] Stop: 07/14/21 23:01 Last Admin: 07/12/21 11:43 Dose: 75 mg Documented by: Pharmacy Consult (Consult Rx Perform Med Rec) 1 each MISCELLANE ONCE PRN PRN Reason: Consult order Sodium Chloride (0.9 % Sodium Chloride Flush 3 Ml Syringe) 3 ml IVFLUSH QSHIFT [facility] Last Admin: 07/12/21 07:35 Dose: Not Given Documented by: Home Medications Medication Instructions Recorded Confirmed Last Taken Type albuterol sulfate 90 mcg/actuation 2 inh INHALATION Q4-6H PRN 07/09/21 07/09/21 Unknown History breath activated powder inhaler Physical Exam Vital Signs: Vital Signs: Last Vital Signs Temp 98.7 F 07/12/21 12:00 Pulse 74 07/12/21 12:00 Resp 16 07/12/21 13:01 BP 115/79 07/12/21 12:00 Pulse Ox 100 07/12/21 12:00 BMI result Body Mass Index 19.6 Const: General: cooperative Limitations: no limitations HEENT: Head: Yes normal to inspection Mouth: Normal oral and palatal mucosa present Resp: Effort & Inspection: normal respiratory effort Cardio: Rate: regular rate Rhythm: regular rhythm GI: Palpation (GI): Soft to palpation and nontender Skin: General skin exam: no rashes or lesions noted Extrem: Other: 1/5 bilateral lower extremity strength 5/5 UE strength sensation intact Results Labs CBC & Chem 7: 07/09/21 07:56 07/12/21 10:12 Labs: BMP 07/12/21 10:12 Sodium 141 Potassium 4.1 Chloride 108 Carbon Dioxide 27 BUN 8 L Creatinine 0.82 Calcium 9.3 Cardiac Enzymes 07/12/21 Range/Units 10:12 Total Creatine Kinase 28837 H (26-140) U/L Assessment and Plan (1) Influenza A: Status: Acute (2) Leg pain, right: Status: Acute Leg weakness and rhabdomyolysis may be due to flu A with viral invasion skeletal muscle and viral toxin leading to myonecrosis or enterovirus Acute flaccid myelitis is a concern as is transverse myelitis. Neurology has seen and ruled out Guillain [place] apparently. Would give Tamiflu for five days MRI LS spine (3) Rhabdomyolysis: Status: Acute
[2021-07-12] MEDS: LORazepam 2 MG/ML VIAL 1 MG IVPUSH (15:48)
[2021-07-12 15:50] LABS: CSF Appearance Clear, Colorless; CSF Tube # 3
[2021-07-12] MEDS: 0.9 % Sodium Chloride Flush 3 ML SYRINGE IVFLUSH (15:51)
[2021-07-12 16:00] LABS: Glucose CSF 54 mg/dL; Total Protein CSF 21.6 mg/dL (15-45)
[2021-07-12 17:40] LABS: Appearance CSF CLEAR; CSF Tube # 1; CSF Volume 2.5 ML; Color CSF COLORLESS; White Blood Cell CSF 5 MM*3
[2021-07-12 17:41] LABS: Lymphocytes CSF 75 %; Neutrophils CSF 25 %; Red Blood Cell CSF 797 MM*3
[2021-07-12 17:42] LABS: Appearance CSF CLEAR; CSF Tube # 4; Color CSF COLORLESS; Lymphocytes CSF 100 %; Red Blood Cell CSF 265 MM*3; White Blood Cell CSF 4 MM*3
[2021-07-13] VITALS (7 sets, daily range): BP systolic 77–121; BP diastolic 47–76; PULSE 60–87; RESP 17–18; TEMP 36.8–37.2; O2SAT 99–100
--- NOTE | 2021-07-13 | ECG_ITS ---
Test Reason : cp Blood Pressure : / mmHG Vent. Rate : 069 BPM Atrial Rate : 069 BPM P-R Int : 212 ms QRS Dur : 090 ms QT Int : 396 ms P-R-T Axes : 072 050 052 degrees QTc Int : 424 ms Sinus rhythm with marked sinus arrhythmia with 1st degree A-V block Nonspecific ST and T wave abnormality Borderline ECG When compared with ECG of 09-JUL-2021 08:55, slight change in ME interval Referred By: Teddy Roblero Electronically Signed By:SOFI VU
--- NOTE | 2021-07-13 | EMG_ITS ---
Bilateral tibial and peroneal motor studies were performed. Bilateral superficial peroneal and sural sensory studies were performed. Tibial H reflexes were obtained. Paraspinal muscles were tested with a needle and some limb muscles were tested. She did not tolerate EMG well and it was limited. IMPRESSION: This study revealed mildly delayed motor distal latencies, slight reduction of left peroneal sensory amplitudes, but overall it did not suggest acute demyelinating type or Guillain-Vanduser type of neuropathy as late responses were intact, conduction velocities were maintained, and distal latencies were not significantly delayed. If clinical suspicion is strong, repeat study is recommended in a couple of weeks' time for better definition. MD GENE Negrete/MODL / [id number]
[2021-07-13] MEDS: Morphine Sulfate 2 MG/ML CARTRIDGE IVPUSH ×2 (05:48→14:06)
[2021-07-13] MEDS: 0.9 % Sodium Chloride 1,000 ML 100 ML IVCONT ×3 (05:51→20:49)
[2021-07-13 06:21] LABS: Anion Gap 11 (12-20); Blood Urea Nitrogen 14 mg/dL (9-16); Carbon Dioxide 24 mmol/L (22-29); Chloride 109 mmol/L (96-108); Creatinine Clr Calc Pharmacy 97.8; Estimated Glomerular Filt Rate > 60; Glucose Random 95 mg/dL (60-115); Potassium 4.6 mmol/L (3.3-5.1); Sodium 139 mmol/L (135-145)
[2021-07-13] MEDS: Gabapentin 100 MG CAPSULE PO ×2 (10:01→14:06)
[2021-07-13] MEDS: Oseltamivir Phosphate 75 MG CAPSULE PO (10:01)
--- NOTE | 2021-07-13 11:34 | P.PNIM_ITS ---
Subjective Subjective Date of Service: 07/13/21 Interval History: Still very weak in legs Paresthesias in hands resolved No fever No respiratory symptoms at this point Review of Systems Review of Systems: Yes all other systems are reviewed and are negative Physical Exam Vital Signs: Vital Signs: Last Vital Signs Temp 98.5 F 07/13/21 07:48 Pulse 60 07/13/21 03:29 Resp 18 07/13/21 07:48 BP 121/76 07/13/21 11:12 Pulse Ox 100 07/13/21 11:12 BMI result Body Mass Index 19.6 Gen: in no acute distress HEENT: sclera anicteric, moist mucus membranes Neck: supple Lungs: clear to auscultation bilaterally Heart: regular rate and rhythm, no murmurs Abd: soft, non-tender, non-distended Ext: no edema Skin: warm/well-perfused Neuro: 3/5 strength bilateral lower extremities Psych: appropriate affect Objective Data Active Medications Acetaminophen (Acetaminophen 325 Mg Tablet) 650 mg PO Q6H PRN PRN Reason: Pain, Mild (Pain Scale 1-3) Last Admin: 07/10/21 20:01 Dose: 650 mg Documented by: GRACIELA Albuterol Sulfate (Albuterol Sulfate 90 Mcg 8 Gm Inhaler) 2 puff INHALE Q4H PRN PRN Reason: Shortness Of Breath Docusate Sodium (Docusate Sodium 100 Mg Capsule) 100 mg PO DAILY PRN PRN Reason: Constipation Gabapentin (Gabapentin 100 Mg Capsule) 100 mg PO TID [facility] Last Admin: 07/13/21 10:01 Dose: 100 mg Documented by: RUBINA Sodium Chloride (Ns) 1,000 mls @ 100 mls/hr IVCONT .Q10H [facility] Last Admin: 07/13/21 05:51 Dose: 100 mls/hr Documented by: BRENT Morphine Sulfate (Morphine Sulfate 2 Mg/Ml Cartridge) 2 mg IVPUSH Q4H PRN; Protocol PRN Reason: Pain, Severe (Pain Scale 7-10) Last Admin: 07/13/21 05:48 Dose: 2 mg Documented by: BRENT Ondansetron HCl (Ondansetron Hcl 4 Mg/2 Ml Vial) 4 mg IVPUSH Q8H PRN PRN Reason: Nausea and Vomiting Last Admin: 07/12/21 05:20 Dose: 4 mg Documented by: ODRISM Oseltamivir Phosphate (Oseltamivir Phosphate 75 Mg Capsule) 75 mg PO Q12H [facility] Stop: 07/14/21 23:01 Last Admin: 07/13/21 10:01 Dose: 75 mg Documented by: RUBINA Pharmacy Consult (Consult Rx Perform Med Rec) 1 each MISCELLANE ONCE PRN PRN Reason: Consult order Sodium Chloride (0.9 % Sodium Chloride Flush 3 Ml Syringe) 3 ml IVFLUSH QSHIFT [facility] Last Admin: 07/13/21 10:00 Dose: Not Given Documented by: RUBINA Non-Admin Reason: IV Running Labs CBC & Chem 7: 07/09/21 07:56 07/13/21 05:50 Labs: Laboratory Results - last 24 hr 07/12/21 07/12/21 07/12/21 Unknown Unknown Unknown Anion Gap Estim Creat Clear Calc Estimated GFR Random Glucose Calcium Total Creatine Kinase CSF Tube Number 3 1 4 CSF Volume 2.5 2.0 CSF Appearance CLEAR CLEAR CSF Color COLORLESS COLORLESS CSF WBC 5 4 CSF RBC 797 265 CSF Neutrophils 25 CSF Lymphocytes 75 100 CSF Appearance (b) Clear, Colorless CSF Glucose 54 CSF Total Protein 21.6 07/13/21 05:50 Anion Gap 11 L Estim Creat Clear Calc 97.8 Estimated GFR > 60 Random Glucose 95 Calcium 9.0 Total Creatine Kinase 7801 H D CSF Tube Number CSF Volume CSF Appearance CSF Color CSF WBC CSF RBC CSF Neutrophils CSF Lymphocytes CSF Appearance (b) CSF Glucose CSF Total Protein Impressions Lumbar Puncture Fluoroscopy 07/12/21 15:26 IMPRESSION: Image guided lumbar puncture at L3-L4. 12 ml clear CSF was collected. Opening pressure was 12 cmH20, Plan: Patient to remain supine for one hour following the procedure. Patient will be transferred to the floor. PROCEDURE SUMMARY: - Image guided lumbar puncture with pressure measurements - Additional procedure(s): None PROCEDURE DETAILS: Pre-procedure Consent: Informed consent for the procedure including risks, benefits and alternatives was obtained and time-out was performed prior to the procedure. Preparation: The site was prepared and draped using maximal sterile barrier technique including cutaneous antisepsis. Anesthesia/sedation Level of anesthesia/sedation: None Anesthesia/sedation administered by: Not applicable Total intra-service sedation time (minutes): 0 Intervention Initial imaging was performed to select an appropriate access level. Patient was placed prone. Local anesthesia was administered. Using a sublaminar approach a 20-gauge spinal needle was advanced into the thecal space under intermittent fluoroscopic guidance. Fluid return confirmed position. Opening pressure was obtained. CSF was then collected in four vials for requested laboratory studies. Closing pressure was then obtained. The needle was removed and a sterile dressing applied. Opening pressure (cmH20): 12 Volume CSF removed (ml): 12 Contrast Contrast agent: None Contrast volume (mL): 0 Radiation Dose Fluoroscopy time (minutes): 0.2 Reference air kerma (mGy): 3.14 Kerma area product (Gy-cm2): 0.107 Additional Details Additional description of procedure: None Equipment details: None Specimens removed: Cerebrospinal fluid Estimated blood loss (mL): Less than 10 Attestation Signer name: Silvio Cresw I attest that I was present for the entire procedure. I reviewed the stored images and agree with the report as written. Brain MRI 07/12/21 18:10 IMPRESSION: 1. No acute intracranial abnormalities. No abnormal intracranial enhancement. 2. Minimal nonspecific white matter changes. Microbiology Microbiology Results: Microbiology 07/12/21 Unknown Gram Stain - Final Cerebrospinal Fluid CSF Examination - Final Fluid Description - Final CSF Culture - Preliminary No growth after 1 day Assessment and Plan (1) Rhabdomyolysis: Status: Acute (2) Influenza A: Status: Acute (3) Rhinovirus infection: Status: Acute (4) Hypomagnesemia: Status: Acute Plan hospital d#5 for this 21yo F with asthma presenting with myalgias, admitted for rhabdomyolysis, found to have influenza A + rhinovirus, also severe lower e xtremity weakness # rhabdomyolysis - suspect myositis from influenza, CPK peaked and trending down, continue IV fluid hydration, Nephrology following # leg weakness - due to pain from ?myositis vs ?GBS vs ?transverse myelitis vs ?MS - CSF bloody tap but protein not elevated, oligoclonal bands pending - MRI brain done, MRI spine today - Neuro following. discuss utility of NCS/EMG # influenza A plus rhinovirus - oseltamivir d#07/21, droplet precautions - ID consulted, following # hypomagnesemia - repleted # VTE ppx - SCDs # dispo - AIR recommended Quality Stroke Does the patient have a stroke diagnosis?: No VTE Prior VTE?: No VTE Risk Level:: Medical - low VTE Device Contraindication: N/A - Device Ordered VTE Drug Contraindication: Treatment Not Indicated
--- NOTE | 2021-07-13 16:33 | MHC.CM.PN ---
PER REQUEST OF AUNT, CL, AND PATIENT PERMISSION, THIS DESIGN TEACHER MET WITH THEM. SENIOR MANAGER ALSO PRESENT. PATIENT AWARE OF RECOMMENDATION FOR ACUTE REHAB STAY; HOWEVER, PATIENT IS CURRENTLY DENYING THIS AND HOPING TO RETURN HOME AT DC. CASE MANAGEMENT TO MEET WITH PATIENT AGAIN TOMORROW TO ACCESS FOR DC PLANS PATIENT AND AUNT EXPRESSED MULTIPLE CONCERNS REGARDING PATIENT CARE. PATIENT REMINDED THAT BECAUSE SHE IS A+O, SHE CAN SPEAK FOR HERSELF AND ADVISED TO DO SO WHEN SHE FEELS HER NEEDS ARE NOT BEING MET. IT IS ALSO RECOMMENDED THAT PATIENT DOES NOT WAIT UNTIL SHE IS FEELING OVERWHELMED AND/OR FRUSTRATED TO ASK FOR WHAT SHE NEEDS PATIENT AGREES WITH PLAN.
[2021-07-13] MEDS: Acetaminophen 325 MG TABLET 650 MG PO (17:30)
--- NOTE | 2021-07-13 17:49 | PM.EVENT ---
Event Note Date of Service: 07/13/21 Event Note: Pt had brief syncopal episode x5sec while being repositioned. [place] lightheaded just beforehand. States hx of syncope with blood draws, sight of blood, etc. Pt alert, no signs of trauma, BP 110s/60,s HR 74, SaO2 100 on RA. Impression is of vasovagal syncope. But will give 1L NS, check POC BG + EKG
[2021-07-13 17:54] LABS: Glucose, Whole Blood 93 mg/dL (60-115)
[2021-07-13] MEDS: 0.9 % Sodium Chloride 1,000 ML 500 ML IVCONT (18:29)
[2021-07-13 20:00] LABS: Troponin-I High Sensitivity < 3.5 ng/L (<3.5-17.0)
[2021-07-13 23:45] LABS: Troponin-I High Sensitivity < 3.5 ng/L (<3.5-17.0)
[2021-07-14 00:16] VITALS: BP 114/68; PULSE 66; RESP 18; TEMP 37.6; O2SAT 100
[2021-07-14] MEDS: Oseltamivir Phosphate 75 MG CAPSULE PO ×2 (00:35→11:20)
[2021-07-14] MEDS: diphenhydrAMINE HCL 25 MG TABLET PO (00:36)
[2021-07-14] MEDS: 0.9 % Sodium Chloride Flush 3 ML SYRINGE IVFLUSH ×2 (00:36→10:21)
[2021-07-14] MEDS: Acetaminophen 325 MG TABLET 650 MG PO ×2 (00:36→10:11)
[2021-07-14] MEDS: Immun Glob G(IgG)/Gly/IGA Ov50 200 ML IV (00:39)
--- NOTE | 2021-07-14 02:05 | PC.NURSE ---
During report Dr. Roblero came and saw the pt and said pt is to be transferred to higher level of care for close monitoring and to start IVIG therapy, Dr. Toth was paged to put the order for transfer, was able to see pt around 2000 alert, oriented and calm with no abnormal movements or twitching noted, also noted with visitors in room including 3 kids and a woman adult, pt was requesting a case management coordinator or an MD to see her, pt verbalized desire to go home, Dr. Toth was made aware, MD came and spoke to the pt, and was explained to her the need to stay in the hospital for treatment, also pt verbalized desire to be transferrred to another facility, Dr. Toth didn't promised a positive outcome on transfer because of the time of the day but convince the pt to stay overnight and be tried in the morning for transfer if desired, pt was agreeable only to stay if her 5 y/o and 3y/o kids will stay overnight for her to look after them, MD then said to ask clinical hog room supervisor for any compromise, Nelli Vaughn was made aware, hog room supervisor came later and spoke with the pt, it was explained about the chances of kids getting sick here and per policy , kids can't stay overnight, pt then decided to go AMA, Dr. Toth revisited the pt and still wanted to go AMA, pt also tried to make numerous phone calls, until finally someone is coming to pick her kids up and she decided to stay in around 2200, transfer to [facility] was processed, report given and transferred pt to [facility] 446.
[2021-07-14 03:17] VITALS: BP 111/62; PULSE 70; RESP 16; TEMP 36.2; O2SAT 100
[2021-07-14 08:46] VITALS: BP 136/58; PULSE 80; RESP 17; TEMP 36.1; O2SAT 99
[2021-07-14 09:14] LABS: Anion Gap 11 (12-20); Blood Urea Nitrogen 10 mg/dL (9-16); Calcium 9.7 mg/dL (8.4-10.2); Carbon Dioxide 24 mmol/L (22-29); Chloride 107 mmol/L (96-108); Creatinine Clr Calc Pharmacy 98.9; Estimated Glomerular Filt Rate > 60; Glucose Random 89 mg/dL (60-115); Potassium 4.2 mmol/L (3.3-5.1); Sodium 138 mmol/L (135-145)
[2021-07-14 10:11] VITALS: RESP 26
[2021-07-14] MEDS: Morphine Sulfate 2 MG/ML CARTRIDGE IVPUSH (10:11)
[2021-07-14 10:17] LABS: Oligoclonal Serum Yes
[2021-07-14] MEDS: Gabapentin 100 MG CAPSULE PO (10:21)
[2021-07-14 11:33] VITALS: BP 134/64; PULSE 66; RESP 18; TEMP 36.2; O2SAT 100
--- NOTE | 2021-07-14 11:50 | HO.PM.IMPN ---
Subjective Subjective Date of Service: 07/14/21 Interval History: Pt's leg strength has improved NCS normal per Neurology Review of Systems Review of Systems: Yes all other systems are reviewed and are negative Physical Exam Vital Signs: Vital Signs: Last Vital Signs Temp 97.2 F 07/14/21 11:33 Pulse 66 07/14/21 11:33 Resp 18 07/14/21 11:33 BP 134/64 07/14/21 11:33 Pulse Ox 100 07/14/21 11:33 BMI result Body Mass Index 19.6 Gen: in no acute distress HEENT: sclera anicteric, moist mucus membranes Neck: supple Lungs: clear to auscultation bilaterally Heart: regular rate and rhythm, no murmurs Abd: soft, non-tender, non-distended Ext: no edema Skin: warm/well-perfused Neuro: 4/5 strength bilateral lower extremities Psych: appropriate affect Objective Data Active Medications Acetaminophen (Acetaminophen 325 Mg Tablet) 650 mg PO Q6H PRN PRN Reason: Pain, Mild (Pain Scale 1-3) Last Admin: 07/13/21 17:30 Dose: 650 mg Documented by: RUBINA Acetaminophen (Acetaminophen 325 Mg Tablet) 650 mg PO DAILY@2029 REPLACED BY [facility] Stop: 07/17/21 20:31 Last Admin: 07/14/21 10:11 Dose: 650 mg Documented by: JENNY Albuterol Sulfate (Albuterol Sulfate 90 Mcg 8 Gm Inhaler) 2 puff INHALE Q4H PRN PRN Reason: Shortness Of Breath Diphenhydramine HCl (Diphenhydramine Hcl 25 Mg Tablet) 25 mg PO DAILY@2029 REPLACED BY [facility] Stop: 07/17/21 20:31 Last Admin: 07/14/21 00:36 Dose: 25 mg Documented by: ANTOIC Docusate Sodium (Docusate Sodium 100 Mg Capsule) 100 mg PO DAILY PRN PRN Reason: Constipation Enoxaparin Sodium (Enoxaparin Sodium 40 Mg/0.4 Ml Syringe) 40 mg SUBCUT Q24H REPLACED BY [facility] Last Admin: 07/13/21 20:16 Dose: Not Given Documented by: GORAN Non-Admin Reason: pt decided to go AMA Gabapentin (Gabapentin 100 Mg Capsule) 100 mg PO TID [facility]PL[facility] BY [facility] Last Admin: 07/14/21 10:21 Dose: 100 mg Documented by: JENNY Sodium Chloride (Ns) 1,000 mls @ 100 mls/hr IVCONT .Q10H REPLACED BY [facility] Last Admin: 07/14/21 11:23 Dose: Not Given Documented by: JENNY Non-Admin Reason: IV Running Sodium Chloride (Ns) 500 mls @ 999 mls/hr IV DAILY@2030 REPLACED BY [facility] Stop: 07/17/21 21:01 Last Admin: 07/14/21 00:17 Dose: Not Given Documented by: GORAN Non-Admin Reason: IV Running Immune Globulin (Gammagard 10%) 200 mls @ 25 mls/hr IV DAILY@2100 REPLACED BY [facility] Stop: 07/18/21 04:59 Morphine Sulfate (Morphine Sulfate 2 Mg/Ml Cartridge) 2 mg IVPUSH Q4H PRN; Protocol PRN Reason: Pain, Severe (Pain Scale 7-10) Last Admin: 07/14/21 10:11 Dose: 2 mg Documented by: JENNY Ondansetron HCl (Ondansetron Hcl 4 Mg/2 Ml Vial) 4 mg IVPUSH Q8H PRN PRN Reason: Nausea and Vomiting Last Admin: 07/12/21 05:20 Dose: 4 mg Documented by: BRENT Oseltamivir Phosphate (Oseltamivir Phosphate 75 Mg Capsule) 75 mg PO Q12H REPLACED BY [facility] Stop: 07/14/21 23:01 Last Admin: 07/14/21 11:20 Dose: 75 mg Documented by: JENNY Pharmacy Consult (Consult Rx Perform Med Rec) 1 each MISCELLANE ONCE PRN PRN Reason: Consult order Sodium Chloride (0.9 % Sodium Chloride Flush 3 Ml Syringe) 3 ml IVFLUSH QSHIFT REPLACED BY [facility] Last Admin: 07/14/21 10:21 Dose: 3 ml Documented by: JENNY Labs CBC & Chem 7: 07/09/21 07:56 07/14/21 08:31 Labs: Laboratory Results - last 24 hr 07/13/21 07/13/21 07/13/21 17:51 19:30 23:18 Anion Gap Estim Creat Clear Calc Estimated GFR POC Glucose 93 Random Glucose Calcium Total Creatine Kinase Troponin I High Sens < 3.5 < 3.5 07/14/21 08:31 Anion Gap 11 L Estim Creat Clear Calc 98.9 Estimated GFR > 60 POC Glucose Random Glucose 89 Calcium 9.7 D Total Creatine Kinase 3647 H D Troponin I High Sens Microbiology Microbiology Results: Microbiology 07/12/21 Unknown Gram Stain - Final Cerebrospinal Fluid CSF Examination - Final Fluid Description - Final CSF Culture - Preliminary No growth after 2 days Assessment and Plan (1) Rhabdomyolysis: Status: Acute (2) Influenza A: Status: Acute (3) Rhinovirus infection: Status: Acute (4) Hypomagnesemia: Status: Acute Plan hospital d#6 for this 21yo F with asthma presenting with myalgias, admitted for rhabdomyolysis, found to have influenza A + rhinovirus, also severe lower extremity weakness # rhabdomyolysis - suspect myositis from influenza, CPK continues to trend down, continue IV fluid hydration, Nephrology following # leg weakness - appears due to myositis. No evidence of GBS per Neurology; d/c IVIg # influenza A plus rhinovirus - oseltamivir d#07/21, droplet precautions - ID consulted, following # hypomagnesemia - repleted # VTE ppx - SCDs # dispo - AIR recommended, PT repeat evaluation today Quality Stroke Does the patient have a stroke diagnosis?: No VTE Prior VTE?: No VTE Risk Level:: Medical - low VTE Device Contraindication: N/A - Device Ordered VTE Drug Contraindication: Treatment Not Indicated
--- NOTE | 2021-07-14 12:47 | P.DS_ITS ---
DS: Providers Provider Date of Service: 07/14/21 Date of admission: 07/09/21 12:08 Date of discharge: 07/14/21 Primary care physician: Linda Pereira MD Consults: 07/10/21 09:30 Consult to Neurology Routine Consulting Provider: [facility] Reason for consultation: leg weakness, difficulty ambulating Has provider been notified: No 07/10/21 12:46 Consult to Nephrology Routine Consulting Provider: Ministerio Anguiano Reason for consultation: rhabdo Has provider been notified: No 07/12/21 10:38 Consult to Infectious Diseases Routine Consulting Provider: Demetria Lacy Reason for consultation: Influenza myositis/rhabdo ? GBS DS: Diagnosis Discharge Diagnosis (1) Rhabdomyolysis: Status: Acute (2) Influenza A: Status: Acute (3) Rhinovirus infection: Status: Acute (4) Hypomagnesemia: Status: Acute (5) Left against medical advice: Status: Acute DS: Summary Hospital Course Hospital Course: from admission history and physical by hospitalist SWEETIE Penaloza, 07/09/21: This is a 21 year old female with no significant past medical history who presents to the ED with multiple complaints.? she reports bilateral inner thigh pain and rib pain starting yesterday. rib pain seems to be worse with breathing and movement of any kid as well as palpation. yesterday she also had an episode of shortness of breath which resolved on its own. overnight she had sweats. she also describes pins and needles feeling in bilateral feet. she was prescribed 7 day course of flagyl earlier in the month for BV but has been taking it sporadically because she frequently forgets.? Her appetite has been at her baseline, she has been drinking gatorade.? she denies any abdominal pain, nausea, vomiting, diarrhea.? Her son had a flare-up of his asthma last week otherwise she denies any recent sick contacts. In the ED, her work up was significant for CPK of 3828, she received IVF and CPK increased to 4777. CXR and DVT study were both unremarkable. Due to elevated CPK the decision was made to admit her for further management. ? She uses marijuana but denies use of any other drugs.? Tox screen was positive only for marijuana.? She denies any recent surgery, trauma, injury of any kind. She denies any excessive physical activity. She has not taken any over the counter medications or supplements. She denies any previous history of rhabdo. COVID 19 vaccination status:? Pfizer x2 This 21yo F with asthma presenting with myalgias was admitted for rhabdomyolysis and was found to have influenza A + rhinovirus. She was treaed with oseltamivir. She developed severe lower extremity weakness. Neurology was consulted. LP and NCS were not consistent with Guillain-Sasakwa syndrome. Leg weakness appeared to be due to myositis. She gradually improved but still required IV hydration, but signed out against medical advice on 07/14/21 despite counseling on the risks of rhabdomyolysis including renal failure. Time Spent with Patient Time attestation: Total time spent providing and/or coordinating discharge services: Discharge coordination time: Greater than 30 minutes Quality: Safe Use of Opioids Does Pt have an Active Cancer Diagnosis on the Problem List?: No Quality: Stroke Does the patient have a stroke diagnosis?: No Physical Exam Vital Signs: Vital Signs: Last Vital Signs Temp 97.2 F 07/14/21 11:33 Pulse 66 07/14/21 11:33 Resp 18 07/14/21 11:33 BP 134/64 07/14/21 11:33 Pulse Ox 100 07/14/21 11:33 BMI result Body Mass Index 19.6 Gen: in no acute distress HEENT: sclera anicteric, moist mucus membranes Neck: supple Lungs: clear to auscultation bilaterally Heart: regular rate and rhythm, no murmurs Abd: soft, non-tender, non-distended Ext: no edema Skin: warm/well-perfused Neuro: 4/5 strength bilateral lower extremities Psych: appropriate affect DS: Data Data Completed and Pending Completed studies during hospitalization [Text1]: Laboratory Tests 07/09/21 07/09/21 07/09/21 07:56 07:56 07:56 WBC 5.3 RBC 4.82 Hgb 14.8 Hct 44.0 MCV 91.3 MCH 30.7 MCHC 33.6 RDW 12.8 Plt Count 264 MPV 9.0 L Immature Gran % (Auto) 0.4 Neut % (Auto) 76.1 H Lymph % (Auto) 12.6 L [place] % (Auto) 7.7 Eos % (Auto) 2.8 Baso % (Auto) 0.4 Lymph # (Auto) 0.7 L [place] # (Auto) 0.4 Eos # (Auto) 0.2 Baso # (Auto) 0.0 Abs Immat Gran (auto) 0.02 Absolute Neuts (auto) 4.0 Absolute Nucleated RBC 0.000 Nucleated RBC % (auto) 0.0 PT INR APTT Sodium 135 Potassium 4.6 Chloride 105 Carbon Dioxide 21 L Anion Gap 14 BUN 11 Creatinine 0.91 Estim Creat Clear Calc 89.9 Estimated GFR > 60 POC Glucose Random Glucose 99 Estimat Average Glucose Hemoglobin A1c % Lactic Acid Calcium 10.0 Phosphorus Magnesium Total Bilirubin 0.7 AST 55 H ALT 21 Alkaline Phosphatase 55 Total Creatine Kinase 3828 H Troponin I High Sens Total Protein 8.3 H Albumin 4.5 Lipase 7 L TSH Beta HCG, Quant < 2 Urine Color Urine Appearance Urine pH Ur Specific [place] Urine Protein Urine Glucose (UA) Urine Ketones Urine Blood Urine Nitrite Ur Leukocyte Esterase Urine RBC Urine WBC Ur Squamous Epith Cells Urine Bacteria CSF Tube Number CSF Volume CSF Appearance CSF Color CSF WBC CSF RBC CSF Neutrophils CSF Lymphocytes CSF Appearance (b) CSF Glucose CSF Total Protein Urine Opiates Screen Urine Fentanyl Screen Ur Barbiturates Screen Ur Phencyclidine Scrn Ur Amphetamines Screen U Benzodiazepines Scrn Urine Cocaine Screen U Marijuana (THC) Screen Respiratory Panel Zayas Adenovirus (Rapid PCR) B.pert (TEM-PCR) B.parapertussis DNA PCR C. pneumoniae DNA (PCR) Coronavirus OC43 (PCR) Coronavirus HKU1 (PCR) Coronavirus 229E (PCR) COVID-19 (ALE) COVID-19 Clin Com Coronavirus NL63 (PCR) HIV 1&2 Ab/P24 Ag 4thGn Human Metapneumovir PCR Influenza A (RT-PCR) Influenza B (RT-PCR) M. pneumoniae (PCR) Parainfluenza 1 (PCR) Parainfluenza 2 (PCR) Parainfluenza 3 (PCR) Parainfluenza 4 (PCR) RSV (PCR) Entero/Rhino (PCR) SARS-CoV-2 RNA (RT-PCR) 07/09/21 07/09/21 07/09/21 07:56 08:45 08:45 WBC RBC Hgb Hct MCV MCH MCHC RDW Plt Count MPV Immature Gran % (Auto) Neut % (Auto) Lymph % (Auto) [place] % (Auto) Eos % (Auto) Baso % (Auto) Lymph # (Auto) [place] # (Auto) Eos # (Auto) Baso # (Auto) Abs Immat Gran (auto) Absolute Neuts (auto) Absolute Nucleated RBC Nucleated RBC % (auto) PT INR APTT Sodium Potassium Chloride Carbon Dioxide Anion Gap BUN Creatinine Estim Creat Clear Calc Estimated GFR POC Glucose Random Glucose Estimat Average Glucose Hemoglobin A1c % Lactic Acid Calcium Phosphorus Magnesium Total Bilirubin AST ALT Alkaline Phosphatase Total Creatine Kinase Troponin I High Sens < 3.5 Total Protein Albumin Lipase TSH Beta HCG, Quant Urine Color YELLOW Urine Appearance CLEAR Urine pH 7.0 Ur Specific [place] 1.015 Urine Protein NEG Urine Glucose (UA) NEG Urine Ketones 15 Urine Blood NEG Urine Nitrite NEG Ur Leukocyte Esterase NEG Urine RBC 0 Urine WBC 0 Ur Squamous Epith Cells TRACE Urine Bacteria NONE CSF Tube Number CSF Volume CSF Appearance CSF Color CSF WBC CSF RBC CSF Neutrophils CSF Lymphocytes CSF Appearance (b) CSF Glucose CSF Total Protein Urine Opiates Screen Not Detected Urine Fentanyl Screen Not Detected Ur Barbiturates Screen Not Detected Ur Phencyclidine Scrn Not Detected Ur Amphetamines Screen Not Detected U Benzodiazepines Scrn Not Detected Urine Cocaine Screen Not Detected U Marijuana (THC) Screen POSITIVE H Respiratory Panel Zayas Adenovirus (Rapid PCR) B.pert (TEM-PCR) B.parapertussis DNA PCR C. pneumoniae DNA (PCR) Coronavirus OC43 (PCR) Coronavirus HKU1 (PCR) Coronavirus 229E (PCR) COVID-19 (ALE) COVID-19 Clin Com Coronavirus NL63 (PCR) HIV 1&2 Ab/P24 Ag 4thGn Human Metapneumovir PCR Influenza A (RT-PCR) Influenza B (RT-PCR) M. pneumoniae (PCR) Parainfluenza 1 (PCR) Parainfluenza 2 (PCR) Parainfluenza 3 (PCR) Parainfluenza 4 (PCR) RSV (PCR) Entero/Rhino (PCR) SARS-CoV-2 RNA (RT-PCR) 07/09/21 07/09/21 07/09/21 10:21 10:21 11:37 WBC RBC Hgb Hct MCV MCH MCHC RDW Plt Count MPV Immature Gran % (Auto) Neut % (Auto) Lymph % (Auto) [place] % (Auto) Eos % (Auto) Baso % (Auto) Lymph # (Auto) [place] # (Auto) Eos # (Auto) Baso # (Auto) Abs Immat Gran (auto) Absolute Neuts (auto) Absolute Nucleated RBC Nucleated RBC % (auto) PT INR APTT Sodium Potassium Chloride Carbon Dioxide Anion Gap BUN Creatinine Estim Creat Clear Calc Estimated GFR POC Glucose Random Glucose Estimat Average Glucose 100 Hemoglobin A1c % 5.1 Lactic Acid Calcium Phosphorus Magnesium 1.5 L Total Bilirubin AST ALT Alkaline Phosphatase Total Creatine Kinase 4777 H Troponin I High Sens Total Protein Albumin Lipase TSH 0.55 Beta HCG, Quant Urine Color Urine Appearance Urine pH Ur Specific [place] Urine Protein Urine Glucose (UA) Urine Ketones Urine Blood Urine Nitrite Ur Leukocyte Esterase Urine RBC Urine WBC Ur Squamous Epith Cells Urine Bacteria CSF Tube Number CSF Volume CSF Appearance CSF Color CSF WBC CSF RBC CSF Neutrophils CSF Lymphocytes CSF Appearance (b) CSF Glucose CSF Total Protein Urine Opiates Screen Urine Fentanyl Screen Ur Barbiturates Screen Ur Phencyclidine Scrn Ur Amphetamines Screen U Benzodiazepines Scrn Urine Cocaine Screen U Marijuana (THC) Screen Respiratory Panel Zayas Adenovirus (Rapid PCR) B.pert (TEM-PCR) B.parapertussis DNA PCR C. pneumoniae DNA (PCR) Coronavirus OC43 (PCR) Coronavirus HKU1 (PCR) Coronavirus 229E (PCR) COVID-19 (ALE) Negative COVID-19 Clin Com See Note Coronavirus NL63 (PCR) HIV 1&2 Ab/P24 Ag 4thGn Human Metapneumovir PCR Influenza A (RT-PCR) Influenza B (RT-PCR) M. pneumoniae (PCR) Parainfluenza 1 (PCR) Parainfluenza 2 (PCR) Parainfluenza 3 (PCR) Parainfluenza 4 (PCR) RSV (PCR) Entero/Rhino (PCR) SARS-CoV-2 RNA (RT-PCR) 07/09/21 07/10/21 07/10/21 14:40 06:08 14:25 WBC RBC Hgb Hct MCV MCH MCHC RDW Plt Count MPV Immature Gran % (Auto) Neut % (Auto) Lymph % (Auto) [place] % (Auto) Eos % (Auto) Baso % (Auto) Lymph # (Auto) [place] # (Auto) Eos # (Auto) Baso # (Auto) Abs Immat Gran (auto) Absolute Neuts (auto) Absolute Nucleated RBC Nucleated RBC % (auto) PT INR APTT Sodium 135 Potassium 4.0 Chloride 106 Carbon Dioxide 23 Anion Gap 10 L BUN 7 L Creatinine 0.87 Estim Creat Clear Calc 87.6 Estimated GFR > 60 POC Glucose Random Glucose 95 Estimat Average Glucose Hemoglobin A1c % Lactic Acid Calcium 9.0 D Phosphorus Magnesium 2.2 Total Bilirubin AST ALT Alkaline Phosphatase Total Creatine Kinase 03433 H D Troponin I High Sens Total Protein Albumin Lipase TSH Beta HCG, Quant Urine Color Urine Appearance Urine pH Ur Specific [place] Urine Protein Urine Glucose (UA) Urine Ketones Urine Blood Urine Nitrite Ur Leukocyte Esterase Urine RBC Urine WBC Ur Squamous Epith Cells Urine Bacteria CSF Tube Number CSF Volume CSF Appearance CSF Color CSF WBC CSF RBC CSF Neutrophils CSF Lymphocytes CSF Appearance (b) CSF Glucose CSF Total Protein Urine Opiates Screen Urine Fentanyl Screen Ur Barbiturates Screen Ur Phencyclidine Scrn Ur Amphetamines Screen U Benzodiazepines Scrn Urine Cocaine Screen U Marijuana (THC) Screen Respiratory Panel Zayas See Note Adenovirus (Rapid PCR) Not Detected B.pert (TEM-PCR) Not Detected B.parapertussis DNA PCR Not Detected C. pneumoniae DNA (PCR) Not Detected Coronavirus OC43 (PCR) Not Detected Coronavirus HKU1 (PCR) Not Detected Coronavirus 229E (PCR) Not Detected COVID-19 (ALE) COVID-19 Clin Com Coronavirus NL63 (PCR) Not Detected HIV 1&2 Ab/P24 Ag 4thGn Human Metapneumovir PCR Not Detected Influenza A (RT-PCR) Detected A Influenza B (RT-PCR) Not Detected M. pneumoniae (PCR) Not Detected Parainfluenza 1 (PCR) Not Detected Parainfluenza 2 (PCR) Not Detected Parainfluenza 3 (PCR) Not Detected Parainfluenza 4 (PCR) Not Detected RSV (PCR) Not Detected Entero/Rhino (PCR) Detected A SARS-CoV-2 RNA (RT-PCR) Not Detected 07/10/21 07/11/21 07/12/21 16:34 05:53 10:12 WBC RBC Hgb Hct MCV MCH MCHC RDW Plt Count MPV Immature Gran % (Auto) Neut % (Auto) Lymph % (Auto) [place] % (Auto) Eos % (Auto) Baso % (Auto) Lymph # (Auto) [place] # (Auto) Eos # (Auto) Baso # (Auto) Abs Immat Gran (auto) Absolute Neuts (auto) Absolute Nucleated RBC Nucleated RBC % (auto) PT INR APTT Sodium 141 141 Potassium 4.5 4.1 Chloride 109 H 108 Carbon Dioxide 26 27 Anion Gap 11 L 10 L BUN 8 L 8 L Creatinine 0.73 0.82 Estim Creat Clear Calc 104.4 92.9 Estimated GFR > 60 > 60 POC Glucose Random Glucose 96 95 Estimat Average Glucose Hemoglobin A1c % Lactic Acid 1.5 Calcium 8.9 9.3 Phosphorus 3.9 3.6 Magnesium 1.7 Total Bilirubin AST ALT Alkaline Phosphatase Total Creatine Kinase 90452 H 64727 H Troponin I High Sens Total Protein Albumin Lipase TSH 2.02 Beta HCG, Quant < 2 Urine Color Urine Appearance Urine pH Ur Specific [place] Urine Protein Urine Glucose (UA) Urine Ketones Urine Blood Urine Nitrite Ur Leukocyte Esterase Urine RBC Urine WBC Ur Squamous Epith Cells Urine Bacteria CSF Tube Number CSF Volume CSF Appearance CSF Color CSF WBC CSF RBC CSF Neutrophils CSF Lymphocytes CSF Appearance (b) CSF Glucose CSF Total Protein Urine Opiates Screen Urine Fentanyl Screen Ur Barbiturates Screen Ur Phencyclidine Scrn Ur Amphetamines Screen U Benzodiazepines Scrn Urine Cocaine Screen U Marijuana (THC) Screen Respiratory Panel Zayas Adenovirus (Rapid PCR) B.pert (TEM-PCR) B.parapertussis DNA PCR C. pneumoniae DNA (PCR) Coronavirus OC43 (PCR) Coronavirus HKU1 (PCR) Coronavirus 229E (PCR) COVID-19 (ALE) COVID-19 Clin Com Coronavirus NL63 (PCR) HIV 1&2 Ab/P24 Ag 4thGn Human Metapneumovir PCR Influenza A (RT-PCR) Influenza B (RT-PCR) M. pneumoniae (PCR) Parainfluenza 1 (PCR) Parainfluenza 2 (PCR) Parainfluenza 3 (PCR) Parainfluenza 4 (PCR) RSV (PCR) Entero/Rhino (PCR) SARS-CoV-2 RNA (RT-PCR) 07/12/21 07/12/21 07/12/21 10:12 10:12 Unknown WBC RBC Hgb Hct MCV MCH MCHC RDW Plt Count MPV Immature Gran % (Auto) Neut % (Auto) Lymph % (Auto) [place] % (Auto) Eos % (Auto) Baso % (Auto) Lymph # (Auto) [place] # (Auto) Eos # (Auto) Baso # (Auto) Abs Immat Gran (auto) Absolute Neuts (auto) Absolute Nucleated RBC Nucleated RBC % (auto) PT 12.1 INR 1.1 APTT 31.0 Sodium Potassium Chloride Carbon Dioxide Anion Gap BUN Creatinine Estim Creat Clear Calc Estimated GFR POC Glucose Random Glucose Estimat Average Glucose Hemoglobin A1c % Lactic Acid Calcium Phosphorus Magnesium Total Bilirubin AST ALT Alkaline Phosphatase Total Creatine Kinase Troponin I High Sens Total Protein Albumin Lipase TSH Beta HCG, Quant Urine Color Urine Appearance Urine pH Ur Specific [place] Urine Protein Urine Glucose (UA) Urine Ketones Urine Blood Urine Nitrite Ur Leukocyte Esterase Urine RBC Urine WBC Ur Squamous Epith Cells Urine Bacteria CSF Tube Number 3 CSF Volume CSF Appearance CSF Color CSF WBC CSF RBC CSF Neutrophils CSF Lymphocytes CSF Appearance (b) Clear, Colorless CSF Glucose 54 CSF Total Protein 21.6 Urine Opiates Screen Urine Fentanyl Screen Ur Barbiturates Screen Ur Phencyclidine Scrn Ur Amphetamines Screen U Benzodiazepines Scrn Urine Cocaine Screen U Marijuana (THC) Screen Respiratory Panel Zayas Adenovirus (Rapid PCR) B.pert (TEM-PCR) B.parapertussis DNA PCR C. pneumoniae DNA (PCR) Coronavirus OC43 (PCR) Coronavirus HKU1 (PCR) Coronavirus 229E (PCR) COVID-19 (ALE) COVID-19 Clin Com Coronavirus NL63 (PCR) HIV 1&2 Ab/P24 Ag 4thGn Nonreactive Human Metapneumovir PCR Influenza A (RT-PCR) Influenza B (RT-PCR) M. pneumoniae (PCR) Parainfluenza 1 (PCR) Parainfluenza 2 (PCR) Parainfluenza 3 (PCR) Parainfluenza 4 (PCR) RSV (PCR) Entero/Rhino (PCR) SARS-CoV-2 RNA (RT-PCR) 07/12/21 07/12/21 07/13/21 Unknown Unknown 05:50 WBC RBC Hgb Hct MCV MCH MCHC RDW Plt Count MPV Immature Gran % (Auto) Neut % (Auto) Lymph % (Auto) [place] % (Auto) Eos % (Auto) Baso % (Auto) Lymph # (Auto) [place] # (Auto) Eos # (Auto) Baso # (Auto) Abs Immat Gran (auto) Absolute Neuts (auto) Absolute Nucleated RBC Nucleated RBC % (auto) PT INR APTT Sodium 139 Potassium 4.6 Chloride 109 H Carbon Dioxide 24 Anion Gap 11 L BUN 14 D Creatinine 0.78 Estim Creat Clear Calc 97.8 Estimated GFR > 60 POC Glucose Random Glucose 95 Estimat Average Glucose Hemoglobin A1c % Lactic Acid Calcium 9.0 Phosphorus Magnesium Total Bilirubin AST ALT Alkaline Phosphatase Total Creatine Kinase 7801 H D Troponin I High Sens Total Protein Albumin Lipase TSH Beta HCG, Quant Urine Color Urine Appearance Urine pH Ur Specific [place] Urine Protein Urine Glucose (UA) Urine Ketones Urine Blood Urine Nitrite Ur Leukocyte Esterase Urine RBC Urine WBC Ur Squamous Epith Cells Urine Bacteria CSF Tube Number 1 4 CSF Volume 2.5 2.0 CSF Appearance CLEAR CLEAR CSF Color COLORLESS COLORLESS CSF WBC 5 4 CSF RBC 797 265 CSF Neutrophils 25 CSF Lymphocytes 75 100 CSF Appearance (b) CSF Glucose CSF Total Protein Urine Opiates Screen Urine Fentanyl Screen Ur Barbiturates Screen Ur Phencyclidine Scrn Ur Amphetamines Screen U Benzodiazepines Scrn Urine Cocaine Screen U Marijuana (THC) Screen Respiratory Panel Zay[place] Adenovirus (Rapid PCR) B.pert (TEM-PCR) B.parapertussis DNA PCR C. pneumoniae DNA (PCR) Coronavirus OC43 (PCR) Coronavirus HKU1 (PCR) Coronavirus 229E (PCR) COVID-19 (ALE) COVID-19 Clin Com Coronavirus NL63 (PCR) HIV 1&2 Ab/P24 Ag 4thGn Human Metapneumovir PCR Influenza A (RT-PCR) Influenza B (RT-PCR) M. pneumoniae (PCR) Parainfluenza 1 (PCR) Parainfluenza 2 (PCR) Parainfluenza 3 (PCR) Parainfluenza 4 (PCR) RSV (PCR) Entero/Rhino (PCR) SARS-CoV-2 RNA (RT-PCR) 07/13/21 07/13/21 07/13/21 17:51 19:30 23:18 WBC RBC Hgb Hct MCV MCH MCHC RDW Plt Count MPV Immature Gran % (Auto) Neut % (Auto) Lymph % (Auto) [place] % (Auto) Eos % (Auto) Baso % (Auto) Lymph # (Auto) [place] # (Auto) Eos # (Auto) Baso # (Auto) Abs Immat Gran (auto) Absolute Neuts (auto) Absolute Nucleated RBC Nucleated RBC % (auto) PT INR APTT Sodium Potassium Chloride Carbon Dioxide Anion Gap BUN Creatinine Estim Creat Clear Calc Estimated GFR POC Glucose 93 Random Glucose Estimat Average Glucose Hemoglobin A1c % Lactic Acid Calcium Phosphorus Magnesium Total Bilirubin AST ALT Alkaline Phosphatase Total Creatine Kinase Troponin I High Sens < 3.5 < 3.5 Total Protein Albumin Lipase TSH Beta HCG, Quant Urine Color Urine Appearance Urine pH Ur Specific [place] Urine Protein Urine Glucose (UA) Urine Ketones Urine Blood Urine Nitrite Ur Leukocyte Esterase Urine RBC Urine WBC Ur Squamous Epith Cells Urine Bacteria CSF Tube Number CSF Volume CSF Appearance CSF Color CSF WBC CSF RBC CSF Neutrophils CSF Lymphocytes CSF Appearance (b) CSF Glucose CSF Total Protein Urine Opiates Screen Urine Fentanyl Screen Ur Barbiturates Screen Ur Phencyclidine Scrn Ur Amphetamines Screen U Benzodiazepines Scrn Urine Cocaine Screen U Marijuana (THC) Screen Respiratory Panel Zay[place] Adenovirus (Rapid PCR) B.pert (TEM-PCR) B.parapertussis DNA PCR C. pneumoniae DNA (PCR) Coronavirus OC43 (PCR) Coronavirus HKU1 (PCR) Coronavirus 229E (PCR) COVID-19 (ALE) COVID-19 Clin Com Coronavirus NL63 (PCR) HIV 1&2 Ab/P24 Ag 4thGn Human Metapneumovir PCR Influenza A (RT-PCR) Influenza B (RT-PCR) M. pneumoniae (PCR) Parainfluenza 1 (PCR) Parainfluenza 2 (PCR) Parainfluenza 3 (PCR) Parainfluenza 4 (PCR) RSV (PCR) Entero/Rhino (PCR) SARS-CoV-2 RNA (RT-PCR) 07/14/21 08:31 WBC RBC Hgb Hct MCV MCH MCHC RDW Plt Count MPV Immature Gran % (Auto) Neut % (Auto) Lymph % (Auto) [place] % (Auto) Eos % (Auto) Baso % (Auto) Lymph # (Auto) [place] # (Auto) Eos # (Auto) Baso # (Auto) Abs Immat Gran (auto) Absolute Neuts (auto) Absolute Nucleated RBC Nucleated RBC % (auto) PT INR APTT Sodium 138 Potassium 4.2 Chloride 107 Carbon Dioxide 24 Anion Gap 11 L BUN 10 Creatinine 0.77 Estim Creat Clear Calc 98.9 Estimated GFR > 60 POC Glucose Random Glucose 89 Estimat Average Glucose Hemoglobin A1c % Lactic Acid Calcium 9.7 D Phosphorus Magnesium Total Bilirubin AST ALT Alkaline Phosphatase Total Creatine Kinase 3647 H D Troponin I High Sens Total Protein Albumin Lipase TSH Beta HCG, Quant Urine Color Urine Appearance Urine pH Ur Specific [place] Urine Protein Urine Glucose (UA) Urine Ketones Urine Blood Urine Nitrite Ur Leukocyte Esterase Urine RBC Urine WBC Ur Squamous Epith Cells Urine Bacteria CSF Tube Number CSF Volume CSF Appearance CSF Color CSF WBC CSF RBC CSF Neutrophils CSF Lymphocytes CSF Appearance (b) CSF Glucose CSF Total Protein Urine Opiates Screen Urine Fentanyl Screen Ur Barbiturates Screen Ur Phencyclidine Scrn Ur Amphetamines Screen U Benzodiazepines Scrn Urine Cocaine Screen U Marijuana (THC) Screen Respiratory Panel Zayas Adenovirus (Rapid PCR) B.pert (TEM-PCR) B.parapertussis DNA PCR C. pneumoniae DNA (PCR) Coronavirus OC43 (PCR) Coronavirus HKU1 (PCR) Coronavirus 229E (PCR) COVID-19 (ALE) COVID-19 Clin Com Coronavirus NL63 (PCR) HIV 1&2 Ab/P24 Ag 4thGn Human Metapneumovir PCR Influenza A (RT-PCR) Influenza B (RT-PCR) M. pneumoniae (PCR) Parainfluenza 1 (PCR) Parainfluenza 2 (PCR) Parainfluenza 3 (PCR) Parainfluenza 4 (PCR) RSV (PCR) Entero/Rhino (PCR) SARS-CoV-2 RNA (RT-PCR) ITS Impressions Chest X-Ray 07/09/21 08:12 IMPRESSION: Unremarkable examination. Venous Duplex 07/09/21 08:28 IMPRESSION: No DVT demonstrated in the right lower extremity. Lumbar Puncture Fluoroscopy 07/12/21 15:26 IMPRESSION: Image guided lumbar puncture at L3-L4. 12 ml clear CSF was collected. Opening pressure was 12 cmH20, Plan: Patient to remain supine for one hour following the procedure. Patient will be transferred to the floor. PROCEDURE SUMMARY: - Image guided lumbar puncture with pressure measurements - Additional procedure(s): None PROCEDURE DETAILS: Pre-procedure Consent: Informed consent for the procedure including risks, benefits and alternatives was obtained and time-out was performed prior to the procedure. Preparation: The site was prepared and draped using maximal sterile barrier technique including cutaneous antisepsis. Anesthesia/sedation Level of anesthesia/sedation: None Anesthesia/sedation administered by: Not applicable Total intra-service sedation time (minutes): 0 Intervention Initial imaging was performed to select an appropriate access level. Patient was placed prone. Local anesthesia was administered. Using a sublaminar approach a 20-gauge spinal needle was advanced into the thecal space under intermittent fluoroscopic guidance. Fluid return confirmed position. Opening pressure was obtained. CSF was then collected in four vials for requested laboratory studies. Closing pressure was then obtained. The needle was removed and a sterile dressing applied. Opening pressure (cmH20): 12 Volume CSF removed (ml): 12 Contrast Contrast agent: None Contrast volume (mL): 0 Radiation Dose Fluoroscopy time (minutes): 0.2 Reference air kerma (mGy): 3.14 Kerma area product (Gy-cm2): 0.107 Additional Details Additional description of procedure: None Equipment details: None Specimens removed: Cerebrospinal fluid Estimated blood loss (mL): Less than 10 Attestation Signer name: Silvio Crews I attest that I was present for the entire procedure. I reviewed the stored images and agree with the report as written. Brain MRI 07/12/21 18:10 IMPRESSION: 1. No acute intracranial abnormalities. No abnormal intracranial enhancement. 2. Minimal nonspecific white matter changes. Lumbar Spine MRI 07/13/21 14:58 IMPRESSION: Normal MRI of the lumbar spine. No abnormal enhancement. No evidence of spinal canal stenosis or nerve root compression. Discharge Plan Discharge Patient Disposition: Left Against Medical Advice Discharge Diagnosis: Rhabdomyolysis due to influenza A infection Referrals: Linda Pereira MD [Primary Care Provider] - 1 Week Discharge Medications: New oseltamivir [Tamiflu] 75 mg Capsule 75 mg PO Q12H Qty: 1 0RF Continued albuterol sulfate 90 mcg/actuation Aerosol Powdr Breath Activated 2 inh INHALATION Q4-6H PRN (Reason: Shortness Of Breath) 0RF Discharge Orders: Discharge Order (Routine); Ordered 07/14/21 Ordered By: Teddy Roblero Diet: advance to usual diet Activity on Discharge: As tolerated Care Plan Goals: recovery fron influenza and rhabdomyolysis Health Concerns: Rhabdomyolysis due to influenza A infection Plan of Treatment: return to hospital as soon as possible for continued IV hydration in the meanwhile, take oseltamivir 75 mg once tonight Assessment: See Discharge Summary Patient Instructions: Rhabdomyolysis (DC), Influenza (DC), Against Medical Advice (DC)
--- NOTE | 2021-07-14 14:02 | MHC.CM.PN ---
Patient is leaving AMA.
== END 2021-07-14 14:32 | disposition left against medical advice (07) | DRG 723 ==
LOC: HO.ED 11:35 → HO.S3 15:04 → HO.EDOVER 07-11 11:47 → HO.IMC 07-14 00:11
PROVIDERS: Internal Medicine; Radiology Diagnostic Radiology; Admitting Provider Physician Assistant Medical; Emergency Provider Emergency Medicine; PCP Internal Medicine; Visit Provider Family Medicine
PROC: 009U3ZZ Drainage of Spinal Canal, Percutaneous Approach (ICD-10-PCS; CPT 62270; principal; 2021-07-12 14:00)
DX: J10.89 Influenza due to other identified influenza virus with other manifestations (principal); M62.82 Rhabdomyolysis; M60.9 Myositis, unspecified; I95.1 Orthostatic hypotension; B34.8 Other viral infections of unspecified site; E83.42 Hypomagnesemia; J45.909 Unspecified asthma, uncomplicated; Z20.822 Contact with and (suspected) exposure to COVID-19; Z79.899 Other long term (current) drug therapy
CPT/HCPCS: 36415; 62328; 70553; 71045; 72158; 80048; 80053; 80307; 81001; 82550; 82945; 82947; 83036; 83605; 83690; 83735; 83916; 84100; 84157; 84443; 84484; 84702; 85025; 85610; 85730; 87015; 87070; 87205; 87389; 87633; 87635; 89051; 93005; 93971; 95886; 95911; 96361; 96374; 96375; 97162; 97530; 99285; A9585; J1170; J1569; J1885; J2060; J2270; J2405; J3475; Q0163